=== PATIENT | female | born 1940 | race Caucasian/White ===

== ENCOUNTER → 2016-11-30 | Outpatient (CLI) | payer OTHER ==
[2013-07-25 04:25] VITALS: BP 119/58
--- NOTE | 2016-11-30 12:20 | MG ---
Examination: Unilateral left diagnostic mammogram. Clinical history: Personal history of right breast carcinoma with right mastectomy in 2007. Technique: Multiple digital images of the left breast were obtained. Computer aided detection analys is was performed in the used in the interpretation. Comparison: 05/13/2008. Findings: The left breast is heterogeneously dense, reducing the sensitivity of mammography. Benign-appearing calcifications are noted in the left breast. No suspicious mass, area of architectural distortion or suspicious cluster of microcalcifications is noted. Impression: 1. No mammographic evidence of malignancy. BI-RADS category 2-benign findings. Recommend routine annual screening mammogram. Diagnostic CAD was utilized and reviewed. * 0 (ZERO) - ASSESSMENT INCOMPLETE; ADDITIONAL IMAGING IS NEEDED. * 0C - ASSESSMENT INCOMPLETE, NEEDS ADDITIONAL IMAGING EVALUATION AND/OR PRIOR MAMMOGRAMS FOR COMPAR FRANKIE. * 1/1 (ONE) - NEGATIVE. * 2/II (TWO) - BENIGN FINDINGS. * 3/III (THREE) - PROBABLY BENIGN FINDING; SHORT INTERVAL FOLLOW-UP SUGGESTED. * 4/IV (FOUR) - SUSPICIOUS ABNORMALITY; BIOPSY SHOULD BE CONSIDERED. * 5/V - HIGHLY SUSPICIOUS OF MALIGNANCY; BIOPSY SHOULD BE PERFORMED. * 6/IV - KNOWN BIOPSY PROVEN MALIGNANCY-APPROPRIATE ACTION SHOULD BE TAKEN. A NEGATIVE X-RAY REPORT SHOULD NOT DELAY BIOPSY IF A DOMINANT OR CLINICALLY SUSPICIOUS MASS IS PRESENT; 4 TO 8 PERCENT OF CANCERS ARE NOT IDENTIFIED BY X-RAY. A NEGATIVE REPORT MAY REINFORCE THE CLINICAL IMPRESSION. ADENOSIS AND DENSE BREASTS MAY OBSCURE AN UNDERLYING NEOPLASM. Reported By:
== END ==
LOC: RAD 11:15
PROVIDERS: ATTEND Internal Medicine
DX: N64.59 Other signs and symptoms in breast (principal)
CPT/HCPCS: 77065

== ENCOUNTER 2016-12-06 07:19 | Emergency (ER) | payer OTHER ==
--- NOTE | 2016-12-06 07:24 | DR.GENAD ---
HPI - PCP Primary Care Physician: Stu - Complaint/Symptoms Chief Complaint Doctors Comments: Patient with chronic back pain with disc disease. Her MRI of 08/18/16 showed moderate multilevel DJD which is most prominent at L5-S1 Moderate to large asymmmetric disc bulge at L4-5 lateralizing to the left causing moderate dural sac effacement and moderate neural foraminal narrowing on the left.;Moderate disc bulges at L2-3 and L5-S1 Moderate osteoarthritic changes of the facets throughout causing diffuse moderate spinal stenosis with is most prominent at L4-5. She is being evaluated by neurosurgeor for treatment but the pain has been severe 06/14, aggravated by motion, chronic <RUEL WALTON - Last Filed: 12/06/16 07:20> PMH - PMH Past Surgical History: Yes <RUEL WALTON - Last Filed: 12/06/16 07:20> ROS - Review of Systems Eyes: No Symptoms Reported ENTM: No Symptoms Reported Respiratoy: No Symptoms Reported Cardiovascular: No Symptoms Reported Gastrointestinal/Abdominal: No Symptoms Reported Genitourinary: No Symptoms Reported Neurological: No Symptoms Reported Musculoskeletal: Back Pain, Joint Pain, Hip Integumentary: No Symptoms Reported Hematologic/Lymphatic: No Symptoms Reported Endocrine: No Symptoms Reported Psychiatric: No Symptoms Reported All Other Systems: Reviewed and Negative <RUEL WALTON - Last Filed: 12/06/16 07:20> PE - General Limitations: No Limitations General Appearance: Alert - Head Head Exam: Normal Inspection, Atraumatic - Eyes Eye exam: Normal Appearance, PERRL, EOMI - ENT ENT Exam: Normal Exam External Ear Exam: Normal External Inspection TM/Canal Exam: Bilateral Normal Nose Exam: Normal Nose Exam Mouth Exam: Normal Inspection Throat Exam: Normal Inspection - Neck Neck Exam: Normal Inspection - Chest Chest Inspection: Normal Inspection - Respiratory Respiratory Exam: Normal Lung Sounds Bilat Respiratory Exam: Bilateral Clear to Auscultation - Cardiovascular Cardiovascular Exam: Regular Rate, Normal Rhythm - Abdominal Exam Abdominal Exam: Normal Inspection Abdominal Tenderness: negative: RUQ, RLQ, LUQ, LLQ, Epigastrium, Suprapubic, Diffuse, Mild, Moderate, Severe, Other - Extremities Extremities Exam: negative: Full ROM (left lower extremity) - Back Back Exam: Tenderness (low back) - Neurologic Neurological Exam: Alert, Oriented X3, CN II-XII Intact - Psychiatric Psychiatric Exam: Normal Affect, Normal Mood - Skin Skin Exam: Warm, Dry, Intact <RUEL WALTON - Last Filed: 12/06/16 07:20> Course - Reevaluation 1st: Improved (WITH DEMORAL IM IN ED.) - Consultation Consultation Comments: DR. PEDRO, PCP CALLED AND WANT PATIENT ADMITTED FOR PAIN CONTROL. <JAVED ARAUJO - Last Filed: 12/06/16 09:01> ROR - Labs Reviewed Result Diagrams: 12/06/16 08:30 12/06/16 08:30 <JAVED ARAUJO - Last Filed: 12/06/16 09:01> <RUEL WALTON - Last Filed: 12/06/16 07:20> <JAVED ARAUJO - Last Filed: 12/06/16 09:01> - Diagnosis Discharge Problem: Lumbar degenerative disc disease, Arthritis, Intractable pain - Discharge Plan Disposition: ADMITTED INPATIENT Condition: Stable - Follow ups/Referrals - Instructions
[2016-12-06] MEDS ORDERED: DEMEROL INJ IM ONE (07:25)
[2016-12-06] MEDS ORDERED: DEMEROL INJ ONE (07:27)
[2016-12-06 07:29] VITALS: BMI 25.7
[2016-12-06] MEDS ORDERED: DEMEROL INJ IVP PRN (08:50)
[2016-12-06] MEDS ORDERED: ZOFRAN INJ 4 MG VIAL IVP PRN (08:50)
[2016-12-06 09:01] LABS: BASOPHILS # (AUTO) 0.1 X10^3/uL (0.0-0.1); BASOPHILS % (AUTO) 0.7 % (0.2-1.0); EOSINOPHILS # (AUTO) 0.2 x10^3/uL (0.0-0.2); EOSINOPHILS % (AUTO) 2.8 % (0.9-2.9); HEMOGLOBIN 12.5 g/dL (12.0-16.0); LYMPHOCYTES # (AUTO) 1.7 X10^3/uL (1.3-2.9); MEAN CORPUSCULAR HEMOGLOBIN 31.1 pg (27.0-34.0); MEAN CORPUSCULAR HGB CONC 34.7 g/dL (33.0-35.0); MEAN CORPUSCULAR VOLUME 89.6 fL (80.0-100.0); MEAN PLATELET VOLUME 8.2 fL (7.4-11.0); MONOCYTES # (AUTO) 0.8 x10^3/uL (0.3-0.8); MONOCYTES % (AUTO) 9.1 % (0.0-13.0); NEUTROPHILS # (AUTO) 5.5 x10^3/uL (2.2-4.8); NEUTROPHILS % (AUTO) 66.4 % (42.0-75.0); PLATELET COUNT 336 X10^3/uL (150.0-450.0); RED BLOOD COUNT 4.02 X10^6/uL (3.5-5.4); RED CELL DISTRIBUTION WIDTH 12.4 % (11.6-16.5); WHITE BLOOD COUNT 8.2 X10^3/uL (3.6-10.0)
[2016-12-06] MEDS: NS 1000 ML 1,000 ML IV SCH ×2 (09:03→16:49)
[2016-12-06 09:24] LABS: ALANINE AMINOTRANSFERASE 31 Units/L (12-78); ALBUMIN 3.8 g/dL (3.4-5.0); ALKALINE PHOSPHATASE 17 Units/L (46-116); ASPARTATE AMINO TRANSFERASE 23 Units/L (15-37); BLOOD UREA NITROGEN 21 mg/dL (7-18); CALCIUM 9.1 mg/dL (8.5-10.1); CHLORIDE 102 mmol/L (98-107); COR NA(FOR HYPERGLY) 142 mmol/L (136-145); CREATININE 1.49 mg/dL (0.55-1.02); GLUCOSE 140 mg/dL (65-99); SODIUM 141 mmol/L (136-145); TOTAL PROTEIN 7.8 g/dL (6.4-8.2); eGFR BLACK RACES 44 (>60); eGFR NON BLACK RACES 36 (>60)
[2016-12-06] MEDS: TORADOL 30 MG VIAL IVP PRN ×2 (11:01→23:07)
[2016-12-06 11:10] LABS: BILIRUBIN,URINE NEGATIVE (NEGATIVE); BLOOD/HEMOGLOBIN,URINE 1+ (NEGATIVE); GLUCOSE, URINE NEGATIVE (NEGATIVE); KETONES,URINE NEGATIVE (NEGATIVE); LEUKOCYTE ESTERASE ,URINE 1+ (NEGATIVE); NITRITES,URINE NEGATIVE (NEGATIVE); PROTEIN,URINE NEGATIVE (NEGATIVE); UROBILINOGEN,URINE NORMAL (NORMAL)
[2016-12-06 11:24] LABS: APPEARANCE,URINE SLIGHTLY HAZY (CLEAR); BACTERIA,URINE NEGATIVE /HPF (NEGATIVE); COLOR,URINE YELLOW (YELLOW); RBC,URINE 0-3 /HPF (NEGATIVE); RENAL EPITHELIAL CELLS,URINE FEW /HPF (NEGATIVE); SQUAMOUS EPITHELIAL CELL,UR RARE /HPF (NEGATIVE)
[2016-12-06] MEDS ORDERED: KLONOPIN TAB 0.5 MG PO SCH (16:00)
[2016-12-06] MEDS: PRED FORTE 1 % OP SCH ×4 (16:38→22:00)
[2016-12-06] MEDS: NEURONTIN CAP 300 MG PO SCH ×2 (16:38→21:03)
[2016-12-06] MEDS: PROTONIX TAB 40 MG PO SCH (16:48)
[2016-12-06] MEDS: TRICOR TAB 145 MG PO SCH (16:48)
[2016-12-06] MEDS: DIOVAN TAB 160 MG PO SCH (16:49)
[2016-12-06] MEDS: ASPIRIN EC 81 MG PO SCH (16:49)
[2016-12-06] MEDS: LOPRESSOR TAB 25 MG PO SCH (16:49)
[2016-12-06] MEDS ORDERED: K-RIDER 10 MEQ/NS 100 ML 10 MEQ/100 ML BAG IV PRN (16:52)
[2016-12-06] MEDS ORDERED: K-LYTE EFFERVESCENT PO PRN (16:52)
[2016-12-06] MEDS ORDERED: POTASSIUM CHLORIDE LIQ 20 MEQ UDC PO PRN (16:52)
[2016-12-06] MEDS ORDERED: K-DUR TAB 20 MEQ PO PRN (16:52)
[2016-12-06 16:57] LABS: BILIRUBIN,URINE NEGATIVE (NEGATIVE); BLOOD/HEMOGLOBIN,URINE NEGATIVE (NEGATIVE); GLUCOSE, URINE NEGATIVE (NEGATIVE); KETONES,URINE NEGATIVE (NEGATIVE); LEUKOCYTE ESTERASE ,URINE 1+ (NEGATIVE); NITRITES,URINE NEGATIVE (NEGATIVE); PROTEIN,URINE NEGATIVE (NEGATIVE); UROBILINOGEN,URINE NORMAL (NORMAL)
[2016-12-06 17:01] LABS: APPEARANCE,URINE HAZY (CLEAR); BACTERIA,URINE TRACE /HPF (NEGATIVE); COLOR,URINE YELLOW (YELLOW); RBC,URINE 0-2 /HPF (NEGATIVE); SQUAMOUS EPITHELIAL CELL,UR RARE /HPF (NEGATIVE)
[2016-12-06] MEDS ORDERED: [UNRECOGNIZED DRUG - OTHER] PO SCH (21:00)
[2016-12-06] MEDS ORDERED: [UNRECOGNIZED DRUG - OTHER] PO SCH (21:00)
[2016-12-06] MEDS: KLONOPIN TAB 0.5 MG PO SCH (21:03)
[2016-12-06] MEDS: PRAVACHOL PO SCH (21:03)
[2016-12-06] MEDS: PEPCID TAB 20 MG PO SCH (21:04)
[2016-12-07] MEDS: NS 1000 ML 1,000 ML IV SCH ×3 (01:13→21:12)
[2016-12-07 05:19] LABS: BASOPHILS % (AUTO) 0.4 % (0.2-1.0); EOSINOPHILS # (AUTO) 0.2 x10^3/uL (0.0-0.2); EOSINOPHILS % (AUTO) 3.1 % (0.9-2.9); HEMOGLOBIN 10.8 g/dL (12.0-16.0); LYMPHOCYTES # (AUTO) 2.8 X10^3/uL (1.3-2.9); LYMPHOCYTES % (AUTO) 38.3 % (21.0-51.0); MEAN CORPUSCULAR HEMOGLOBIN 30.9 pg (27.0-34.0); MEAN CORPUSCULAR HGB CONC 33.8 g/dL (33.0-35.0); MEAN CORPUSCULAR VOLUME 91.3 fL (80.0-100.0); MEAN PLATELET VOLUME 8.6 fL (7.4-11.0); MONOCYTES # (AUTO) 0.7 x10^3/uL (0.3-0.8); MONOCYTES % (AUTO) 9.9 % (0.0-13.0); NEUTROPHILS # (AUTO) 3.5 x10^3/uL (2.2-4.8); NEUTROPHILS % (AUTO) 48.3 % (42.0-75.0); PLATELET COUNT 279 X10^3/uL (150.0-450.0); RED BLOOD COUNT 3.51 X10^6/uL (3.5-5.4); RED CELL DISTRIBUTION WIDTH 12.3 % (11.6-16.5); WHITE BLOOD COUNT 7.3 X10^3/uL (3.6-10.0)
[2016-12-07 05:25] LABS: ALANINE AMINOTRANSFERASE 19 Units/L (12-78); ALBUMIN 2.8 g/dL (3.4-5.0); ALKALINE PHOSPHATASE 13 Units/L (46-116); ASPARTATE AMINO TRANSFERASE 19 Units/L (15-37); BLOOD UREA NITROGEN 22 mg/dL (7-18); CALCIUM 8.1 mg/dL (8.5-10.1); CARBON DIOXIDE 24.1 mmol/L (21-32); CHLORIDE 111 mmol/L (98-107); COR CA(FOR HYPOALB) 9.1 mg/dL (8.5-10.1); GLUCOSE 99 mg/dL (65-99); SODIUM 144 mmol/L (136-145); TOTAL PROTEIN 5.9 g/dL (6.4-8.2); eGFR BLACK RACES 51 (>60); eGFR NON BLACK RACES 43 (>60)
[2016-12-07] MEDS: TORADOL 30 MG VIAL IVP PRN (09:03)
[2016-12-07] MEDS: DIOVAN TAB 160 MG PO SCH (09:07)
[2016-12-07] MEDS: PROTONIX TAB 40 MG PO SCH (09:07)
[2016-12-07] MEDS: TRICOR TAB 145 MG PO SCH (09:07)
[2016-12-07] MEDS: LOPRESSOR TAB 25 MG PO SCH (09:08)
[2016-12-07] MEDS: NEURONTIN CAP 300 MG PO SCH ×3 (09:08→21:13)
[2016-12-07] MEDS: PRED FORTE 1 % OP SCH ×4 (09:08→21:14)
[2016-12-07] MEDS: ASPIRIN EC 81 MG PO SCH (09:08)
[2016-12-07] MEDS ORDERED: VALIUM PO PRN (09:26)
[2016-12-07] MEDS: TORADOL 30 MG VIAL IVP SCH ×3 (11:26→21:13)
[2016-12-07] MEDS ORDERED: VALIUM INJ IVP ONE (12:43)
--- NOTE | 2016-12-07 15:36 | MRI ---
HISTORY: Intractable low back pain Study: MRI lumbar spine without contrast Comparison: 08/18/2016 Technique: Multiplanar multi-sequence MRI of the lumbar spine was obtained. Sagittal T1, sagittal T 2, and stir weighted images, axial T1, and axial T2 images were obtained. Findings: The lumbar spine demonstrates normal alignment. No abnormal cord or marrow signal identified. The c onus of the cord terminates normally. The surrounding soft tissues are within normal limits. Verteb ral body heights are preserved. There is multilevel disc desiccation and spondylosis. T12 -- L1: Mild to moderate bilateral facet degenerative changes without significant stenosis. L1 -- L2: Moderate bilateral facet degenerative changes and hypertrophy without significant stenosis identified. L2 -- L3: There is mild to moderate spinal canal stenosis due to facet hypertrophic changes and a br oad-based disc bulge there is resultant moderate lateral recess encroachment and mild bilateral fora nieves narrowing. L3 -- L4: There is a central annular tear again noted. There is a broad-based disc bulge and moderat e to advanced facet hypertrophic changes resulting in moderate spinal stenosis, moderate lateral rec ess encroachment and mild bilateral foraminal narrowing. L4 -- L5: There is a large broad-based disc bulge at L4-L5 asymmetric to the left with posterior nataly ment hypertrophic changes resulting in moderate to severe spinal stenosis, lateral recess encroachme nt, and moderate left foraminal stenosis. L5 -- S1: There is a broad-based disc bulge and facet hypertrophic changes resulting in moderate lopez ateral foraminal narrowing. IMPRESSION: 1. Moderate to severe spinal stenosis at L4-5, and moderate spinal stenosis at L2-L3 and L3-L4 due t o degenerative disc disease and facet hypertrophic changes. 2. Moderate foraminal stenosis on the left at L4-5 and bilaterally at L5-S1. Reported By:
--- NOTE | 2016-12-07 16:09 | DR.H&P ---
H&P - History & Physical for Day of: H&P Date: 12/06/16 - Chief Complaint Chief Complaint: INTRACTABLE LOW BACK PAIN - Allergies Allergies/Adverse Reactions: Allergies Allergy/AdvReac Type Severity Reaction Status Date / Time Hydromorphone [From Dilaudid] Allergy Verified 12/06/16 07:30 - History of Present Illness History of Present Illness: THIS IS A 76 YEAR OLD FEMALE, WHO IS A PATIENT OF OURS. SHE PRESENTS TO THE EMERGENCY ROOM WITH COMPLAINTS OF SEVERE LOWER BACK PAIN. PATIENT HAS A HISTORY OF BACK PAIN WITH DEGENERATIVE JOINT DISEASE. PATIENT STATES SHE HAS BEEN EVALUATED BY A NEUROSURGEON FOR TREATMENT OF PAIN. PATIENT REPORTS PAIN IS SEVERE AND RATES IT A 10 ON A 1-TO-10 PAIN SCALE. SHE STATES HER BACK IS AGGRAVATED BY MOTION AND HAS WORSENED OVER THE LAST FEW DAYS. ON PALPATION, SHE IS NOTED WITH TENDERNESS TO LUMBAR REGION. PATIENT HAD AN MRI OF LUMBAR SPINE IN AUGUST OF 2016 THAT REPORTS: MODERATE MULTILEVEL DEGENERATIVE DISC DISEASE, MOST PROMINENT AT L5-S1 WITH NO ACUTE ABNORMALITY; MODERATE TO LARGE ASSYMETRIC DISC BULGE AT L4-5 LATERALIZING TO THE LEFT CAUSING MODERATE DURAL SAC EFFACEMENT AND MODERATE NEUROAL FORAMINAL NARROWING; MODERATE DISC BULGES AT L2-3 AND L5-S1; MODERATE OSTEOARTHRITIC CHANGES OF THE FACETS THROUGHOUT CAUSING DIFFUSE MODERATE SPINAL STENOSIS WHICH IS PROMINENT AT L4-5. WE WILL ADMIT PATIENT FOR PAIN CONTROL. WE WILL CONTINUE TO MONITOR AND PLAN FOR FOLLOW UP MRI OF LUMBAR SPINE IN AM. - Past Medical History Past Medical History: Anemia, Dyslipidemia, GERD, Hypertension Additional Medical History: Cataracts, Ear Infections, Constipation, Urinary Tract Infections, Osteoarthritis, Back Pain, DJD, Previous Blood Transfusion, Right Breast Cancer - Past Surgical History Surgical History: Cholecystectomy Additional Surgical History: Right Mastectomy - Family History Family Medical History: MS, Coronary Artery Disease, Hypertension Family History Comment: CVA - Social History Does patient currently use any type of tobacco product: No Have you used tobacco products in the last 12 months: No Type of Tobacco Use: None Does any household member use tobacco: No Alcohol Use: None Drug Use: Prescription Drugs - Medications Home Medications: Calcium Polycarbophil [Fiber Laxative] 2 tab PO DAILY 12/06/16 [History Confirmed 12/06/16] Clonazepam [Clonazepam] 0.5 mg PO HS 12/06/16 [History Confirmed 12/06/16] Fenofibrate [TRICOR 145 MG *] 145 mg PO DAILY 12/06/16 [History Confirmed ] Gabapentin [Gabapentin] 300 mg PO BID 12/06/16 [History Confirmed 12/06/16] Metoprolol Tartrate [LOPRESSOR 25 MG *] 25 mg PO DAILY 12/06/16 [History Confirmed 12/06/16] Pantoprazole Sodium 40 mg [PROTONIX 40 MG *] 40 mg PO DAILY 12/06/16 [History Confirmed 12/06/16] Pravastatin Sodium 20 mg PO HS 12/06/16 [History Confirmed 12/06/16] PrednisoLONE ACETATE (OPHTH) [PRED FORTE (OPHTH) SUSP 1 % *] 1 drop EACHEYE QID 12/06/16 [History Confirmed 12/06/16] Tramadol HCl 50 mg PO Q4-6H PRN 12/06/16 [History Confirmed 12/06/16] - Review of Systems Constitutional: No Symptoms Reported Eyes: No Symptoms Reported. denies: Pain, Vision Change, Conjunctivae Inflammation, Eyelid Inflammation, Redness ENT: No Symptoms Reported. denies: Ear Pain, Ear Discharge, Nose Pain, Nose Discharge, Nose Congestion, Mouth Pain, Mouth Swelling, Throat Pain, Throat Swelling Respiratory: No Symptoms Reported. denies: Cough, Shortness of Breath, Hemoptysis, SOB with Excertion, Pleuritic Pain, Sputum, Wheezing Cardiovascular: No Symptoms Reported. denies: Chest Pain, Palpitations, Orthopnea, Paroxysmal Noc. Dyspnea, Edema, Light Headedness Gastrointestinal: No Symptoms Reported. denies: Nausea, Vomiting, Abdominal Pain, Diarrhea, Constipation, Melena, Hematochezia Genitourinary: No Symptoms Reported. denies: Dysuria, Frequency, Incontinence, Hematuria, Retention Musculoskeletal: Back Pain Skin: No Symptoms Reported. denies: Rash, Lesions, Jaundice, Bruising, Wound, Ecchymosis Neurological: No Symptoms Reported. denies: Weakness, Numbness, Incoordination , Change in Speech, Confusion, Seizures - Physical Exam Vital Signs: Temperature 97.7 F Pulse Rate [Left Brachial] 78 Respiratory Rate 18 Blood Pressure [Left Arm] 147/65 O2 Sat by Pulse Oximetry 97 Oriented: Normal, Time, Person, Place Eyes: Normal. negative: Blurred Vision, Diplopia, Discharge, Pain, Redness, Photophobia Ear: Normal. negative: Swelling, Ecchymosis, Hemotypanum, Abrasion, Laceration Nose: Normal. negative: Injected, Discharge, Blood Throat: Normal. negative: Tonsillar Hypertrophy, Red, Exudate Respiratory: Clear Throughout Cardiovascular: Normal. negative: Murmur, Edema : Normal. negative: Dysuria, Hematuria, Frequency, Discharge, Bleeding, Auscultation: Bowel Sounds: Normal. negative: Bruit Palpation: Normal. negative: Spleen Enlarged, Liver Enlarged, Mass Pulsatile Tenderness: Normal. negative: Rebound, Guarding, Rigidity Skin: Normal. negative: Diaphoresis, Wound, Bruising, Ecchymosis Musculoskeletal: Back:Lumbar, Instability Psychiatric: Anxiety Mood Description: Anxious Affect: Normal Speech Pattern: Clear, Appropriate - Assessment/Plan (1) Intractable pain Status: Acute Plan: ADMIT PATIENT, START DEMEROL, TORADOL, MRI OF LUMBAR SPINE IN AM. (2) Lumbar degenerative disc disease Status: Chronic (3) Arthritis Status: Chronic (4) Hypertension Qualifiers: Hypertension type: essential hypertension Qualified Code(s): I10 - Essential (primary) hypertension Status: Chronic (5) Hyperlipemia Qualifiers: Hyperlipidemia type: mixed hyperlipidemia Qualified Code(s): E78.2 - Mixed hyperlipidemia Status: Chronic (6) GERD (gastroesophageal reflux disease) Qualifiers: Esophagitis presence: esophagitis presence not specified Qualified Code(s) : K21.9 - Gastro-esophageal reflux disease without esophagitis Status: Chronic (7) Hx of breast cancer Status: Chronic
--- NOTE | 2016-12-07 16:32 | PCM.PROG ---
Progress Note - Progress Note for Day of Date: 12/07/16 - Subjective Subjective: PATIENT IS SITTING ON SIDE OF BED WITH AT HER SIDE. PATIENT IS EATING BREAKFAST AND TOLERATING FAIR. SHE REPORTS PAIN IS MORE CONTROLLED WITH IV PAIN MEDICATIONS. PATIENT REPORTS SEVERE LEFT HIP PAIN ASSOCIATED WITH LUMBAR BACK PAIN. WE ARE GOING TO OBTAIN ANOTHER MRI OF LUMBAR SPINE TODAY DUE TO THE POSSIBLITY OF WORSENING SPINAL STENOSIS. WE DISCUSS THE POSSIBLITY OF SURGERY IF THIS IS TRUE, PATIENT VOICES UNDERSTANDING. CBC WNL EXCEPT: H/H 10.8/32.0. CMP WNL EXCEPT: CHL 111, BUN/CREAT 22/1.30, GFR 43, CALCIUM 8.1, TOT PROTEIN 5.9, ALBUMIN 2.8. WE WILL CONTINUE CURRENT TREATMENT AND FOLLOW UP IN AM WITH LABS. - Past Medical Family Social History Past Med/Fam/Surg Hx: No changes since H&P Allergies: Allergies Hydromorphone [From Dilaudid] Allergy (Verified 12/06/16 07:30) - Review of Systems ROS: No change since H&P - Vital Signs and I&O's Vital Signs: Temperature 97.7 F Pulse Rate [Left Brachial] 78 Respiratory Rate 18 Blood Pressure [Left Arm] 147/65 O2 Sat by Pulse Oximetry 97 Intake and Output: Intake & Output 12/05/16 12/06/16 12/07/16 12/08/16 11:59 11:59 11:59 11:59 Intake Total 1980 720 Output Total 203 Balance 1777 720 - Physical Exam Oriented: Normal, Time, Person, Place Eyes: Normal. negative: Blurred Vision, Diplopia, Discharge, Pain, Redness, Photophobia Ear: Normal. negative: Swelling, Ecchymosis, Hemotypanum, Abrasion, Laceration Nose: Normal. negative: Injected, Discharge, Blood Throat: Normal. negative: Tonsillar Hypertrophy, Red, Exudate Respiratory: Normal Cardiovascular: Normal. negative: Murmur, Edema : Normal. negative: Dysuria, Hematuria, Frequency, Discharge, Bleeding, Auscultation: Bowel Sounds: Normal. negative: Bruit Palpation: Normal. negative: Spleen Enlarged, Liver Enlarged, Mass Pulsatile Tenderness: Normal. negative: Rebound, Guarding, Rigidity Skin: Normal. negative: Diaphoresis, Wound, Bruising, Ecchymosis Musculoskeletal: Back:Lumbar, Instability Psychiatric: Normal Mood Description: Calm, Appropriate Affect: Normal Speech Pattern: Clear, Appropriate - Laboratory and Diagnostics Result Diagrams: 12/07/16 04:30 12/07/16 04:30 Labs: Laboratory WBC 7.3 X10^3/uL (3.6-10.0) 12/07/16 04:30 RBC 3.51 X10^6/uL (3.5-5.4) 12/07/16 04:30 Hgb 10.8 g/dL (12.0-16.0) L 12/07/16 04:30 Hct 32.0 % (36.0-47.0) L 12/07/16 04:30 MCV 91.3 fL (80.0-100.0) 12/07/16 04:30 MCH 30.9 pg (27.0-34.0) 12/07/16 04:30 MCHC 33.8 g/dL (33.0-35.0) 12/07/16 04:30 RDW 12.3 % (11.6-16.5) 12/07/16 04:30 Plt Count 279 X10^3/uL (150.0-450.0) 12/07/16 04:30 MPV 8.6 fL (7.4-11.0) 12/07/16 04:30 Neut % 48.3 % (42.0-75.0) 12/07/16 04:30 Lymph % 38.3 % (21.0-51.0) 12/07/16 04:30 Gregory % 9.9 % (0.0-13.0) 12/07/16 04:30 Eos % 3.1 % (0.9-2.9) H 12/07/16 04:30 Baso % 0.4 % (0.2-1.0) 12/07/16 04:30 Neut # 3.5 x10^3/uL (2.2-4.8) 12/07/16 04:30 Lymph # 2.8 X10^3/uL (1.3-2.9) 12/07/16 04:30 Gregory # 0.7 x10^3/uL (0.3-0.8) 12/07/16 04:30 Eos # 0.2 x10^3/uL (0.0-0.2) 12/07/16 04:30 Baso # 0.0 X10^3/uL (0.0-0.1) 12/07/16 04:30 Absolute Nucleated RBC 0.1 /100WBC 12/07/16 04:30 PTT 24.7 SECONDS (22.9-36.5) 12/07/16 10:05 PTT Comment - 12/07/16 10:05 Sodium 144 mmol/L (136-145) 12/07/16 04:30 Corrected Sodium TNP 12/07/16 04:30 Potassium 4.2 mmol/L (3.5-5.1) 12/07/16 04:30 Chloride 111 mmol/L (98-107) H 12/07/16 04:30 Carbon Dioxide 24.1 mmol/L (21-32) 12/07/16 04:30 BUN 22 mg/dL (7-18) H 12/07/16 04:30 Creatinine 1.30 mg/dL (0.55-1.02) H 12/07/16 04:30 Est GFR (MDRD) Af Amer 51 (>60) L 12/07/16 04:30 Est GFR (MDRD) Non-Af 43 (>60) L 12/07/16 04:30 Glucose 99 mg/dL (65-99) 12/07/16 04:30 Calcium 8.1 mg/dL (8.5-10.1) L 12/07/16 04:30 Corrected Calcium 9.1 mg/dL (8.5-10.1) 12/07/16 04:30 Total Bilirubin 0.20 mg/dL (0.2-1.0) 12/07/16 04:30 AST 19 Units/L (15-37) 12/07/16 04:30 ALT 19 Units/L (12-78) 12/07/16 04:30 Alkaline Phosphatase 13 Units/L (46-116) L 12/07/16 04:30 Total Protein 5.9 g/dL (6.4-8.2) L 12/07/16 04:30 Albumin 2.8 g/dL (3.4-5.0) L 12/07/16 04:30 Globulin 3.1 g/dL (2.5-4.5) 12/07/16 04:30 Albumin/Globulin Ratio 0.9 Ratio (1.1-2.1) L 12/07/16 04:30 Specimen Type Clean catch urine 12/06/16 16:40 Urine Color Yellow (YELLOW) 12/06/16 16:40 Urine Appearance Hazy (CLEAR) 12/06/16 16:40 Urine pH 5.0 (5.0 - 8.0) 12/06/16 16:40 Ur Specific Goodman 1.020 (1.000-1.030) 12/06/16 16:40 Urine Protein Negative (NEGATIVE) 12/06/16 16:40 Urine Glucose (UA) Negative (NEGATIVE) 12/06/16 16:40 Urine Ketones Negative (NEGATIVE) 12/06/16 16:40 Urine Occult Blood Negative (NEGATIVE) 12/06/16 16:40 Urine Nitrite Negative (NEGATIVE) 12/06/16 16:40 Urine Bilirubin Negative (NEGATIVE) 12/06/16 16:40 Urine Urobilinogen Normal (NORMAL) 12/06/16 16:40 Ur Leukocyte Esterase 1+ (NEGATIVE) 12/06/16 16:40 Urine RBC 0-2 /HPF (NEGATIVE) 12/06/16 16:40 Urine WBC 0-2 /HPF (NEGATIVE) 12/06/16 16:40 Ur Squamous Epith Cells Rare /HPF (NEGATIVE) 12/06/16 16:40 Ur Renal Epithelial Cell Few /HPF (NEGATIVE) 12/06/16 10:50 Urine Bacteria Trace /HPF (NEGATIVE) 12/06/16 16:40 Ur Culture Indicated? No/not indicated 12/06/16 16:40 - Plan (1) Intractable pain Status: Acute Plan: CONTINUE DEMEROL, TORADOL, MRI OF LUMBAR SPINE AND MRI OF LEFT HIP TODAY. (2) Left hip pain Status: Acute Plan: OBTAIN MRI OF LEFT HIP, CONTINUE DEMEROL, TORADOL, MONITOR. (3) Lumbar degenerative disc disease Status: Chronic (4) Arthritis Status: Chronic (5) Hypertension Status: Chronic Qualifiers: Hypertension type: essential hypertension Qualified Code(s): I10 - Essential (primary) hypertension (6) Hyperlipemia Status: Chronic Qualifiers: Hyperlipidemia type: mixed hyperlipidemia Qualified Code(s): E78.2 - Mixed hyperlipidemia (7) GERD (gastroesophageal reflux disease) Status: Chronic Qualifiers: Esophagitis presence: esophagitis presence not specified Qualified Code(s) : K21.9 - Gastro-esophageal reflux disease without esophagitis (8) Hx of breast cancer Status: Chronic
--- NOTE | 2016-12-07 16:44 | MRI ---
MR left hip without contrast Indication: Severe left hip pain for 3 months. Comparison: MR from the same day reviewed. Technique: Multiplanar multi sequence imaging through the pelvis and left hip without contrast. Findings: Review of intraperitoneal abdominal and pelvic soft tissue shows trace free fluid in the p jose without other acute unexpected abnormality. Colonic diverticulosis noted. Spine degenerative c hanges are noted, see separately dictated MR lumbar spine report. Mild bilateral SI joint DJD is see n. There is no evidence of fracture. Bone marrow signal is normal. Symphysis pubis DJD is noted. Bo ateral hip joint degenerative changes are noted. There is bilateral small hip joint effusions, relatively similar in size probably slightly larger on the left. Greater trochanteric bursitis is noted, very mild. Bilateral gluteus medius and minimus t endinosis seen. Bilateral minimal hamstring tendinosis noted. Iliopsoas tendon is intact. Degenerative fraying of the acetabular labrum is probably present but the labrum is relatively poorl y visualized without displaced labrum tear or paralabral cysts convincingly demonstrated. Impression: 1. Bilateral hip joint degenerative change , effusions, gluteus medius/minimus tendinosis, hamstring tendinosis and greater trochanteric bursitis. 2. No acute abnormality seen. Changes are relatively bilateral and symmetric. Please see separately dictated lumbar spine for possible lumbar source of pain. 3. Diverticulosis, symphysis pubis DJD and SI joint DJD also noted. Reported By:
[2016-12-07] MEDS: KLONOPIN TAB 0.5 MG PO SCH (21:13)
[2016-12-07] MEDS: ZANAFLEX PO SCH (21:13)
[2016-12-07] MEDS: PEPCID TAB 20 MG PO SCH (21:13)
[2016-12-07] MEDS: PRAVACHOL PO SCH (21:13)
[2016-12-08] MEDS: NS 1000 ML 1,000 ML IV SCH ×3 (00:48→17:41)
[2016-12-08] MEDS: TORADOL 30 MG VIAL IVP SCH ×2 (04:51→09:31)
[2016-12-08] MEDS: NEURONTIN CAP 300 MG PO SCH ×3 (05:06→21:12)
[2016-12-08 05:28] LABS: BASOPHILS % (AUTO) 0.3 % (0.2-1.0); EOSINOPHILS # (AUTO) 0.3 x10^3/uL (0.0-0.2); EOSINOPHILS % (AUTO) 4.3 % (0.9-2.9); HEMATOCRIT 29.8 % (36.0-47.0); HEMOGLOBIN 10.3 g/dL (12.0-16.0); LYMPHOCYTES # (AUTO) 2.5 X10^3/uL (1.3-2.9); LYMPHOCYTES % (AUTO) 40.9 % (21.0-51.0); MEAN CORPUSCULAR HEMOGLOBIN 31.4 pg (27.0-34.0); MEAN CORPUSCULAR HGB CONC 34.4 g/dL (33.0-35.0); MEAN CORPUSCULAR VOLUME 91.2 fL (80.0-100.0); MEAN PLATELET VOLUME 8.5 fL (7.4-11.0); MONOCYTES # (AUTO) 0.5 x10^3/uL (0.3-0.8); MONOCYTES % (AUTO) 8.2 % (0.0-13.0); NEUTROPHILS # (AUTO) 2.8 x10^3/uL (2.2-4.8); NEUTROPHILS % (AUTO) 46.3 % (42.0-75.0); PLATELET COUNT 267 X10^3/uL (150.0-450.0); RED BLOOD COUNT 3.27 X10^6/uL (3.5-5.4); RED CELL DISTRIBUTION WIDTH 12.2 % (11.6-16.5); WHITE BLOOD COUNT 6.1 X10^3/uL (3.6-10.0)
[2016-12-08 05:40] LABS: ALANINE AMINOTRANSFERASE 20 Units/L (12-78); ALBUMIN 2.7 g/dL (3.4-5.0); ALKALINE PHOSPHATASE 13 Units/L (46-116); ASPARTATE AMINO TRANSFERASE 20 Units/L (15-37); BLOOD UREA NITROGEN 22 mg/dL (7-18); CARBON DIOXIDE 24.6 mmol/L (21-32); CHLORIDE 113 mmol/L (98-107); CREATININE 1.31 mg/dL (0.55-1.02); GLUCOSE 100 mg/dL (65-99); SODIUM 146 mmol/L (136-145); TOTAL PROTEIN 5.7 g/dL (6.4-8.2); eGFR BLACK RACES 51 (>60); eGFR NON BLACK RACES 42 (>60)
[2016-12-08] MEDS: ASPIRIN EC 81 MG PO SCH (09:28)
[2016-12-08] MEDS: DIOVAN TAB 160 MG PO SCH (09:29)
[2016-12-08] MEDS: LOPRESSOR TAB 25 MG PO SCH (09:29)
[2016-12-08] MEDS: PROTONIX TAB 40 MG PO SCH (09:29)
[2016-12-08] MEDS: TRICOR TAB 145 MG PO SCH (09:29)
[2016-12-08] MEDS: PRED FORTE 1 % OP SCH ×4 (09:34→21:13)
[2016-12-08] MEDS ORDERED: TORADOL 30 MG VIAL IVP SCH (14:00)
[2016-12-08] MEDS ORDERED: ULTRAM PO PRN (17:52)
[2016-12-08] MEDS: PEPCID TAB 20 MG PO SCH (21:12)
[2016-12-08] MEDS: PRAVACHOL PO SCH (21:12)
[2016-12-08] MEDS: KLONOPIN TAB 0.5 MG PO SCH (21:12)
[2016-12-08] MEDS: ZANAFLEX PO SCH (21:13)
[2016-12-09 05:26] LABS: ALANINE AMINOTRANSFERASE 19 Units/L (12-78); ALBUMIN 2.7 g/dL (3.4-5.0); ALKALINE PHOSPHATASE 15 Units/L (46-116); ASPARTATE AMINO TRANSFERASE 16 Units/L (15-37); BLOOD UREA NITROGEN 17 mg/dL (7-18); CALCIUM 8.2 mg/dL (8.5-10.1); CARBON DIOXIDE 25.5 mmol/L (21-32); CHLORIDE 111 mmol/L (98-107); COR CA(FOR HYPOALB) 9.2 mg/dL (8.5-10.1); CREATININE 1.32 mg/dL (0.55-1.02); GLUCOSE 107 mg/dL (65-99); SODIUM 144 mmol/L (136-145); TOTAL PROTEIN 5.6 g/dL (6.4-8.2); eGFR BLACK RACES 51 (>60); eGFR NON BLACK RACES 42 (>60)
[2016-12-09 05:32] LABS: BASOPHILS % (AUTO) 0.4 % (0.2-1.0); EOSINOPHILS # (AUTO) 0.3 x10^3/uL (0.0-0.2); EOSINOPHILS % (AUTO) 4.4 % (0.9-2.9); HEMATOCRIT 28.3 % (36.0-47.0); HEMOGLOBIN 9.8 g/dL (12.0-16.0); LYMPHOCYTES # (AUTO) 2.3 X10^3/uL (1.3-2.9); LYMPHOCYTES % (AUTO) 34.3 % (21.0-51.0); MEAN CORPUSCULAR HEMOGLOBIN 31.3 pg (27.0-34.0); MEAN CORPUSCULAR HGB CONC 34.6 g/dL (33.0-35.0); MEAN CORPUSCULAR VOLUME 90.3 fL (80.0-100.0); MEAN PLATELET VOLUME 8.6 fL (7.4-11.0); MONOCYTES # (AUTO) 0.6 x10^3/uL (0.3-0.8); MONOCYTES % (AUTO) 8.3 % (0.0-13.0); NEUTROPHILS # (AUTO) 3.5 x10^3/uL (2.2-4.8); NEUTROPHILS % (AUTO) 52.6 % (42.0-75.0); PLATELET COUNT 264 X10^3/uL (150.0-450.0); RED BLOOD COUNT 3.14 X10^6/uL (3.5-5.4); RED CELL DISTRIBUTION WIDTH 12.4 % (11.6-16.5); WHITE BLOOD COUNT 6.7 X10^3/uL (3.6-10.0)
[2016-12-09] MEDS: NEURONTIN CAP 300 MG PO SCH ×3 (05:57→21:20)
[2016-12-09] MEDS ORDERED: DYLOJECT INJ IVP PRN (09:18)
[2016-12-09] MEDS: PRED FORTE 1 % OP SCH ×4 (09:26→21:18)
[2016-12-09] MEDS: PROTONIX TAB 40 MG PO SCH (09:26)
[2016-12-09] MEDS: LOPRESSOR TAB 25 MG PO SCH (09:26)
[2016-12-09] MEDS: DIOVAN TAB 160 MG PO SCH (09:26)
[2016-12-09] MEDS: TRICOR TAB 145 MG PO SCH (09:26)
[2016-12-09] MEDS: ASPIRIN EC 81 MG PO SCH (09:26)
--- NOTE | 2016-12-09 20:29 | PCM.PROG ---
Progress Note - Progress Note for Day of Date: 12/08/16 - Subjective Subjective: PATIENT RESTS IN BED WITH AT BEDSIDE. PATIENT REPORTS PAIN IS SEVERE THIS MORNING. PATIENT CONTINUES ON IV TORADOL ATC FOR PAIN CONTROL. PATIENT REPORTS SEVERE LEFT HIP PAIN ASSOCIATED WITH LUMBAR BACK PAIN. WE OBTAINED ANOTHER MRI OF LUMBAR SPINE AND IT REPORTS: MODERATE TO SEVERE SPINAL STENOSIS AT L4-5 AND MODERATE SPINAL STENOSIS AT L2-3 AND L3-4 DUE TO DEGENERATEIVE DISC DISEASE AND FACET HYPERTROPHIC CHANGES; MODERATE FORAMINAL STENOSIS ON THE LEFT AT L4-5 AND BILATERALLY AT L5-S1. LEFT HIP MRI REPORTS: BILATERAL HIP JOINT DEGENERATIVE CHANGE, EFFUSION, GLUTEUS MEDIUS/MINIMUS TENIOSIS, HAMSTRING TENDINOSIS AND GREATER TROCHANTERIC BURSITIS; NO ACUTE ABNORMALITY SEEN. WE DISCUSS REPORTS WITH PATIENT AND . THEY VOICE UNDERSTANDING. WE DISCUSS FURTHER PLANS FOR SURGERY WHEN POSSIBLE, SHE VOICES UNDERSTANDING. CBC WNL EXCEPT: H/H 10.3/29.8. CMP WNL EXCEPT: SODIUM 146, CHL 113, BUN/CREAT 22/1.31, GFR 42, GLUCOSE 100, CALCIUM 8.0, TOT PROTEIN 5.7, ALBUMIN 2.7. WE WILL CONTINUE CURRENT TREATMENT AND FOLLOW UP IN AM WITH LABS. - Past Medical Family Social History Past Med/Fam/Surg Hx: No changes since H&P Allergies: Allergies Hydromorphone [From Dilaudid] Allergy (Verified 12/06/16 07:30) - Review of Systems ROS: No change since H&P - Vital Signs and I&O's Vital Signs: Temperature 97.4 F Pulse Rate [Left Brachial] 84 Respiratory Rate 20 Blood Pressure [Left Arm] 181/79 O2 Sat by Pulse Oximetry 95 Intake and Output: Intake & Output 12/07/16 12/08/16 12/09/16 12/10/16 11:59 11:59 11:59 11:59 Intake Total 1980 3445 1760 1250 Output Total 203 Balance 1777 3445 1760 1250 - Physical Exam Oriented: Normal, Time, Person, Place Eyes: Normal. negative: Blurred Vision, Diplopia, Discharge, Pain, Redness, Photophobia Ear: Normal. negative: Swelling, Ecchymosis, Hemotypanum, Abrasion, Laceration Nose: Normal. negative: Injected, Discharge, Blood Throat: Normal. negative: Tonsillar Hypertrophy, Red, Exudate Respiratory: Normal Cardiovascular: Normal. negative: Murmur, Edema : Normal. negative: Dysuria, Hematuria, Frequency, Discharge, Bleeding, Auscultation: Bowel Sounds: Normal. negative: Bruit Palpation: Normal. negative: Spleen Enlarged, Liver Enlarged, Mass Pulsatile Tenderness: Normal. negative: Rebound, Guarding, Rigidity Skin: Normal. negative: Diaphoresis, Wound, Bruising, Ecchymosis Musculoskeletal: Back:Lumbar, Instability Psychiatric: Normal Mood Description: Calm, Appropriate Affect: Normal Speech Pattern: Clear, Appropriate - Laboratory and Diagnostics Result Diagrams: 12/09/16 04:30 12/09/16 04:30 Labs: Laboratory WBC 6.7 X10^3/uL (3.6-10.0) 12/09/16 04:30 RBC 3.14 X10^6/uL (3.5-5.4) L 12/09/16 04:30 Hgb 9.8 g/dL (12.0-16.0) L 12/09/16 04:30 Hct 28.3 % (36.0-47.0) L 12/09/16 04:30 MCV 90.3 fL (80.0-100.0) 12/09/16 04:30 MCH 31.3 pg (27.0-34.0) 12/09/16 04:30 MCHC 34.6 g/dL (33.0-35.0) 12/09/16 04:30 RDW 12.4 % (11.6-16.5) 12/09/16 04:30 Plt Count 264 X10^3/uL (150.0-450.0) 12/09/16 04:30 MPV 8.6 fL (7.4-11.0) 12/09/16 04:30 Neut % 52.6 % (42.0-75.0) 12/09/16 04:30 Lymph % 34.3 % (21.0-51.0) 12/09/16 04:30 [place] % 8.3 % (0.0-13.0) 12/09/16 04:30 Eos % 4.4 % (0.9-2.9) H 12/09/16 04:30 Baso % 0.4 % (0.2-1.0) 12/09/16 04:30 Neut # 3.5 x10^3/uL (2.2-4.8) 12/09/16 04:30 Lymph # 2.3 X10^3/uL (1.3-2.9) 12/09/16 04:30 [place] # 0.6 x10^3/uL (0.3-0.8) 12/09/16 04:30 Eos # 0.3 x10^3/uL (0.0-0.2) H 12/09/16 04:30 Baso # 0.0 X10^3/uL (0.0-0.1) 12/09/16 04:30 Absolute Nucleated RBC 0.1 /100WBC 12/09/16 04:30 PTT 24.7 SECONDS (22.9-36.5) 12/07/16 10:05 PTT Comment - 12/07/16 10:05 Sodium 144 mmol/L (136-145) 12/09/16 04:30 Corrected Sodium TNP 12/09/16 04:30 Potassium 3.5 mmol/L (3.5-5.1) 12/09/16 04:30 Chloride 111 mmol/L (98-107) H 12/09/16 04:30 Carbon Dioxide 25.5 mmol/L (21-32) 12/09/16 04:30 BUN 17 mg/dL (7-18) 12/09/16 04:30 Creatinine 1.32 mg/dL (0.55-1.02) H 12/09/16 04:30 Est GFR (MDRD) Af Amer 51 (>60) L 12/09/16 04:30 Est GFR (MDRD) Non-Af 42 (>60) L 12/09/16 04:30 Glucose 107 mg/dL (65-99) H 12/09/16 04:30 Calcium 8.2 mg/dL (8.5-10.1) L 12/09/16 04:30 Corrected Calcium 9.2 mg/dL (8.5-10.1) 12/09/16 04:30 Total Bilirubin 0.10 mg/dL (0.2-1.0) L 12/09/16 04:30 AST 16 Units/L (15-37) 12/09/16 04:30 ALT 19 Units/L (12-78) 12/09/16 04:30 Alkaline Phosphatase 15 Units/L (46-116) L 12/09/16 04:30 Total Protein 5.6 g/dL (6.4-8.2) L 12/09/16 04:30 Albumin 2.7 g/dL (3.4-5.0) L 12/09/16 04:30 Globulin 2.9 g/dL (2.5-4.5) 12/09/16 04:30 Albumin/Globulin Ratio 0.9 Ratio (1.1-2.1) L 12/09/16 04:30 Specimen Type Clean catch urine 12/06/16 16:40 Urine Color Yellow (YELLOW) 12/06/16 16:40 Urine Appearance Hazy (CLEAR) 12/06/16 16:40 Urine pH 5.0 (5.0 - 8.0) 12/06/16 16:40 Ur Specific [place] 1.020 (1.000-1.030) 12/06/16 16:40 Urine Protein Negative (NEGATIVE) 12/06/16 16:40 Urine Glucose (UA) Negative (NEGATIVE) 12/06/16 16:40 Urine Ketones Negative (NEGATIVE) 12/06/16 16:40 Urine Occult Blood Negative (NEGATIVE) 12/06/16 16:40 Urine Nitrite Negative (NEGATIVE) 12/06/16 16:40 Urine Bilirubin Negative (NEGATIVE) 12/06/16 16:40 Urine Urobilinogen Normal (NORMAL) 12/06/16 16:40 Ur Leukocyte Esterase 1+ (NEGATIVE) 12/06/16 16:40 Urine RBC 0-2 /HPF (NEGATIVE) 12/06/16 16:40 Urine WBC 0-2 /HPF (NEGATIVE) 12/06/16 16:40 Ur Squamous Epith Cells Rare /HPF (NEGATIVE) 12/06/16 16:40 Ur Renal Epithelial Cell Few /HPF (NEGATIVE) 12/06/16 10:50 Urine Bacteria Trace /HPF (NEGATIVE) 12/06/16 16:40 Ur Culture Indicated? No/not indicated 12/06/16 16:40 - Plan (1) Intractable pain Status: Acute Plan: CONTINUE DEMEROL, TORADOL, MONITOR. (2) Left hip pain Status: Acute Plan: CONTINUE DEMEROL, TORADOL, MONITOR. (3) Lumbar degenerative disc disease Status: Chronic (4) Arthritis Status: Chronic (5) Hypertension Status: Chronic Qualifiers: Hypertension type: essential hypertension Qualified Code(s): I10 - Essential (primary) hypertension (6) Hyperlipemia Status: Chronic Qualifiers: Hyperlipidemia type: mixed hyperlipidemia Qualified Code(s): E78.2 - Mixed hyperlipidemia (7) GERD (gastroesophageal reflux disease) Status: Chronic Qualifiers: Esophagitis presence: esophagitis presence not specified Qualified Code(s) : K21.9 - Gastro-esophageal reflux disease without esophagitis (8) Hx of breast cancer Status: Chronic
[2016-12-09] MEDS: PRAVACHOL PO SCH (21:17)
[2016-12-09] MEDS: ZANAFLEX PO SCH (21:17)
[2016-12-09] MEDS: PEPCID TAB 20 MG PO SCH (21:17)
[2016-12-09] MEDS: KLONOPIN TAB 0.5 MG PO SCH (21:18)
[2016-12-09] MEDS: NS 1000 ML 1,000 ML IV SCH (21:21)
[2016-12-10] MEDS: NEURONTIN CAP 300 MG PO SCH ×3 (05:37→21:18)
[2016-12-10] MEDS: NS 1000 ML 1,000 ML IV SCH ×2 (05:38→16:19)
[2016-12-10 06:19] LABS: BASOPHILS % (AUTO) 0.5 % (0.2-1.0); EOSINOPHILS # (AUTO) 0.3 x10^3/uL (0.0-0.2); EOSINOPHILS % (AUTO) 4.2 % (0.9-2.9); HEMOGLOBIN 9.9 g/dL (12.0-16.0); LYMPHOCYTES # (AUTO) 2.5 X10^3/uL (1.3-2.9); LYMPHOCYTES % (AUTO) 36.6 % (21.0-51.0); MEAN CORPUSCULAR HEMOGLOBIN 31.2 pg (27.0-34.0); MEAN CORPUSCULAR HGB CONC 34.3 g/dL (33.0-35.0); MEAN CORPUSCULAR VOLUME 91.1 fL (80.0-100.0); MONOCYTES # (AUTO) 0.6 x10^3/uL (0.3-0.8); MONOCYTES % (AUTO) 8.7 % (0.0-13.0); NEUTROPHILS # (AUTO) 3.5 x10^3/uL (2.2-4.8); PLATELET COUNT 270 X10^3/uL (150.0-450.0); RED BLOOD COUNT 3.19 X10^6/uL (3.5-5.4); RED CELL DISTRIBUTION WIDTH 12.5 % (11.6-16.5); WHITE BLOOD COUNT 6.9 X10^3/uL (3.6-10.0)
[2016-12-10 06:29] LABS: ALANINE AMINOTRANSFERASE 18 Units/L (12-78); ALKALINE PHOSPHATASE 15 Units/L (46-116); ASPARTATE AMINO TRANSFERASE 18 Units/L (15-37); BLOOD UREA NITROGEN 24 mg/dL (7-18); CALCIUM 8.8 mg/dL (8.5-10.1); CARBON DIOXIDE 25.7 mmol/L (21-32); CHLORIDE 110 mmol/L (98-107); COR CA(FOR HYPOALB) 9.6 mg/dL (8.5-10.1); CREATININE 1.36 mg/dL (0.55-1.02); GLUCOSE 108 mg/dL (65-99); SODIUM 146 mmol/L (136-145); TOTAL PROTEIN 5.7 g/dL (6.4-8.2); eGFR BLACK RACES 49 (>60); eGFR NON BLACK RACES 40 (>60)
[2016-12-10] MEDS: PROTONIX TAB 40 MG PO SCH (09:00)
[2016-12-10] MEDS: LOPRESSOR TAB 25 MG PO SCH (09:00)
[2016-12-10] MEDS: TRICOR TAB 145 MG PO SCH (09:00)
[2016-12-10] MEDS: ASPIRIN EC 81 MG PO SCH (09:00)
[2016-12-10] MEDS: PRED FORTE 1 % OP SCH ×4 (09:01→21:19)
[2016-12-10] MEDS: DIOVAN TAB 160 MG PO SCH (09:01)
--- NOTE | 2016-12-10 17:39 | PCM.PROG ---
Progress Note - Progress Note for Day of Date: 12/09/16 - Subjective Subjective: PATIENT IS EMOTIONAL THIS MORNING DUE TO SEVERE PAIN THIS MORNING. PATIENT CONTINUES WITH SEVERE LEFT HIP PAIN ASSOCIATED WITH LUMBAR BACK PAIN. PATIENT HAS BEEN ON TORADOL FOR PAIN MANAGEMENT. CBC WNL EXCEPT: H/H 9.8/28.3. CMP WNL EXCEPT: CHL 111, CREAT 1.32, GFR 42, GLUCOSE 107, CALCIUM 8.2, TOT PROTEIN 5.6, ALBUMIN 2.7. WE WILL DISCONTINUE TORADOL, START IV DICLOFENAC, CONTINUE CURRENT TREATMENT, AND FOLLOW UP IN AM WITH LABS. - Past Medical Family Social History Past Med/Fam/Surg Hx: No changes since H&P Allergies: Allergies Hydromorphone [From Dilaudid] Allergy (Verified 12/06/16 07:30) - Review of Systems ROS: No change since H&P - Vital Signs and I&O's Vital Signs: Temperature 97.8 F Pulse Rate [Left Brachial] 87 Respiratory Rate 18 Blood Pressure [Left Arm] 127/59 O2 Sat by Pulse Oximetry 96 Intake and Output: Intake & Output 12/08/16 12/09/16 12/10/16 12/11/16 11:59 11:59 11:59 11:59 Intake Total 3445 1760 2932 1460 Balance 3445 1760 2932 1460 - Physical Exam Oriented: Normal, Time, Person, Place Eyes: Normal. negative: Blurred Vision, Diplopia, Discharge, Pain, Redness, Photophobia Ear: Normal. negative: Swelling, Ecchymosis, Hemotypanum, Abrasion, Laceration Nose: Normal. negative: Injected, Discharge, Blood Throat: Normal. negative: Tonsillar Hypertrophy, Red, Exudate Respiratory: Normal Cardiovascular: Normal. negative: Murmur, Edema : Normal. negative: Dysuria, Hematuria, Frequency, Discharge, Bleeding, Auscultation: Bowel Sounds: Normal. negative: Bruit Palpation: Normal. negative: Spleen Enlarged, Liver Enlarged, Mass Pulsatile Tenderness: Normal. negative: Rebound, Guarding, Rigidity Skin: Normal. negative: Diaphoresis, Wound, Bruising, Ecchymosis Musculoskeletal: Back:Lumbar, Instability Psychiatric: Normal Mood Description: Calm, Appropriate Affect: Normal Speech Pattern: Clear, Appropriate - Laboratory and Diagnostics Result Diagrams: 12/10/16 03:45 12/10/16 03:45 Labs: Laboratory WBC 6.9 X10^3/uL (3.6-10.0) 12/10/16 03:45 RBC 3.19 X10^6/uL (3.5-5.4) L 12/10/16 03:45 Hgb 9.9 g/dL (12.0-16.0) L 12/10/16 03:45 Hct 29.0 % (36.0-47.0) L 12/10/16 03:45 MCV 91.1 fL (80.0-100.0) 12/10/16 03:45 MCH 31.2 pg (27.0-34.0) 12/10/16 03:45 MCHC 34.3 g/dL (33.0-35.0) 12/10/16 03:45 RDW 12.5 % (11.6-16.5) 12/10/16 03:45 Plt Count 270 X10^3/uL (150.0-450.0) 12/10/16 03:45 MPV 9.0 fL (7.4-11.0) 12/10/16 03:45 Neut % 50.0 % (42.0-75.0) 12/10/16 03:45 Lymph % 36.6 % (21.0-51.0) 12/10/16 03:45 [place] % 8.7 % (0.0-13.0) 12/10/16 03:45 Eos % 4.2 % (0.9-2.9) H 12/10/16 03:45 Baso % 0.5 % (0.2-1.0) 12/10/16 03:45 Neut # 3.5 x10^3/uL (2.2-4.8) 12/10/16 03:45 Lymph # 2.5 X10^3/uL (1.3-2.9) 12/10/16 03:45 [place] # 0.6 x10^3/uL (0.3-0.8) 12/10/16 03:45 Eos # 0.3 x10^3/uL (0.0-0.2) H 12/10/16 03:45 Baso # 0.0 X10^3/uL (0.0-0.1) 12/10/16 03:45 Absolute Nucleated RBC 0.3 /100WBC 12/10/16 03:45 PTT 24.7 SECONDS (22.9-36.5) 12/07/16 10:05 PTT Comment - 12/07/16 10:05 Sodium 146 mmol/L (136-145) H 12/10/16 03:45 Corrected Sodium TNP 12/10/16 03:45 Potassium 3.7 mmol/L (3.5-5.1) 12/10/16 03:45 Chloride 110 mmol/L (98-107) H 12/10/16 03:45 Carbon Dioxide 25.7 mmol/L (21-32) 12/10/16 03:45 BUN 24 mg/dL (7-18) H 12/10/16 03:45 Creatinine 1.36 mg/dL (0.55-1.02) H 12/10/16 03:45 Est GFR (MDRD) Af Amer 49 (>60) L 12/10/16 03:45 Est GFR (MDRD) Non-Af 40 (>60) L 12/10/16 03:45 Glucose 108 mg/dL (65-99) H 12/10/16 03:45 Calcium 8.8 mg/dL (8.5-10.1) 12/10/16 03:45 Corrected Calcium 9.6 mg/dL (8.5-10.1) 12/10/16 03:45 Total Bilirubin 0.20 mg/dL (0.2-1.0) 12/10/16 03:45 AST 18 Units/L (15-37) 12/10/16 03:45 ALT 18 Units/L (12-78) 12/10/16 03:45 Alkaline Phosphatase 15 Units/L (46-116) L 12/10/16 03:45 Total Protein 5.7 g/dL (6.4-8.2) L 12/10/16 03:45 Albumin 3.0 g/dL (3.4-5.0) L 12/10/16 03:45 Globulin 2.7 g/dL (2.5-4.5) 12/10/16 03:45 Albumin/Globulin Ratio 1.1 Ratio (1.1-2.1) 12/10/16 03:45 Specimen Type Clean catch urine 12/06/16 16:40 Urine Color Yellow (YELLOW) 12/06/16 16:40 Urine Appearance Hazy (CLEAR) 12/06/16 16:40 Urine pH 5.0 (5.0 - 8.0) 12/06/16 16:40 Ur Specific [place] 1.020 (1.000-1.030) 12/06/16 16:40 Urine Protein Negative (NEGATIVE) 12/06/16 16:40 Urine Glucose (UA) Negative (NEGATIVE) 12/06/16 16:40 Urine Ketones Negative (NEGATIVE) 12/06/16 16:40 Urine Occult Blood Negative (NEGATIVE) 12/06/16 16:40 Urine Nitrite Negative (NEGATIVE) 12/06/16 16:40 Urine Bilirubin Negative (NEGATIVE) 12/06/16 16:40 Urine Urobilinogen Normal (NORMAL) 12/06/16 16:40 Ur Leukocyte Esterase 1+ (NEGATIVE) 12/06/16 16:40 Urine RBC 0-2 /HPF (NEGATIVE) 12/06/16 16:40 Urine WBC 0-2 /HPF (NEGATIVE) 12/06/16 16:40 Ur Squamous Epith Cells Rare /HPF (NEGATIVE) 12/06/16 16:40 Ur Renal Epithelial Cell Few /HPF (NEGATIVE) 12/06/16 10:50 Urine Bacteria Trace /HPF (NEGATIVE) 12/06/16 16:40 Ur Culture Indicated? No/not indicated 12/06/16 16:40 - Plan (1) Intractable pain Status: Acute Plan: DISCONTINUE TORADOL, START DICLOFENAC ATC, MONITOR. (2) Left hip pain Status: Acute Plan: ABOVE. (3) Lumbar degenerative disc disease Status: Chronic (4) Arthritis Status: Chronic (5) Hypertension Status: Chronic Qualifiers: Hypertension type: essential hypertension Qualified Code(s): I10 - Essential (primary) hypertension (6) Hyperlipemia Status: Chronic Qualifiers: Hyperlipidemia type: mixed hyperlipidemia Qualified Code(s): E78.2 - Mixed hyperlipidemia (7) GERD (gastroesophageal reflux disease) Status: Chronic Qualifiers: Esophagitis presence: esophagitis presence not specified Qualified Code(s) : K21.9 - Gastro-esophageal reflux disease without esophagitis (8) Hx of breast cancer Status: Chronic
--- NOTE | 2016-12-10 17:45 | PCM.PROG ---
Progress Note - Progress Note for Day of Date: 12/10/16 - Subjective Subjective: PHYSICAL THERAPY IS WORKING WITH PATIENT ON STRENGTHENING EXERCISES UPON ROUNDS THIS MORNING. PATIENT IN BETTER SPIRITS. PATIENT REPORTS PAIN CONTINUES BUT IS MORE CONTROLLED WITH IV PAIN MEDICATION. ON PALPATION, TENDERNESS CONTINUES TO LUMBAR REGION OF BACK. CBC WNL EXCEPT: H/H 9.8/28.3. CMP WNL EXCEPT: SODIUM 146, CHL 110, BUN/CREAT 24/1.36, GFR 40, GLUCOSE 108, TOT PROTEIN 5.7, ALBUMIN 3.0. WE WILL CONTINUE IV DICLOFENAC, CONTINUE PHYSICAL THERAPY, AND FOLLOW UP IN AM WITH LABS. - Past Medical Family Social History Past Med/Fam/Surg Hx: No changes since H&P Allergies: Allergies Hydromorphone [From Dilaudid] Allergy (Verified 12/06/16 07:30) - Review of Systems ROS: No change since H&P - Vital Signs and I&O's Vital Signs: Temperature 97.8 F Pulse Rate [Left Brachial] 87 Respiratory Rate 18 Blood Pressure [Left Arm] 127/59 O2 Sat by Pulse Oximetry 96 Intake and Output: Intake & Output 12/08/16 12/09/16 12/10/16 12/11/16 11:59 11:59 11:59 11:59 Intake Total 3445 1760 2932 1460 Balance 3445 1760 2932 1460 - Physical Exam Oriented: Normal, Time, Person, Place Eyes: Normal. negative: Blurred Vision, Diplopia, Discharge, Pain, Redness, Photophobia Ear: Normal. negative: Swelling, Ecchymosis, Hemotypanum, Abrasion, Laceration Nose: Normal. negative: Injected, Discharge, Blood Throat: Normal. negative: Tonsillar Hypertrophy, Red, Exudate Respiratory: Normal Cardiovascular: Normal. negative: Murmur, Edema : Normal. negative: Dysuria, Hematuria, Frequency, Discharge, Bleeding, Auscultation: Bowel Sounds: Normal. negative: Bruit Palpation: Normal. negative: Spleen Enlarged, Liver Enlarged, Mass Pulsatile Tenderness: Normal. negative: Rebound, Guarding, Rigidity Skin: Normal. negative: Diaphoresis, Wound, Bruising, Ecchymosis Musculoskeletal: Back:Lumbar, Instability Psychiatric: Normal Mood Description: Calm, Appropriate Affect: Normal Speech Pattern: Clear, Appropriate - Laboratory and Diagnostics Result Diagrams: 12/10/16 03:45 12/10/16 03:45 Labs: Laboratory WBC 6.9 X10^3/uL (3.6-10.0) 12/10/16 03:45 RBC 3.19 X10^6/uL (3.5-5.4) L 12/10/16 03:45 Hgb 9.9 g/dL (12.0-16.0) L 12/10/16 03:45 Hct 29.0 % (36.0-47.0) L 12/10/16 03:45 MCV 91.1 fL (80.0-100.0) 12/10/16 03:45 MCH 31.2 pg (27.0-34.0) 12/10/16 03:45 MCHC 34.3 g/dL (33.0-35.0) 12/10/16 03:45 RDW 12.5 % (11.6-16.5) 12/10/16 03:45 Plt Count 270 X10^3/uL (150.0-450.0) 12/10/16 03:45 MPV 9.0 fL (7.4-11.0) 12/10/16 03:45 Neut % 50.0 % (42.0-75.0) 12/10/16 03:45 Lymph % 36.6 % (21.0-51.0) 12/10/16 03:45 [place] % 8.7 % (0.0-13.0) 12/10/16 03:45 Eos % 4.2 % (0.9-2.9) H 12/10/16 03:45 Baso % 0.5 % (0.2-1.0) 12/10/16 03:45 Neut # 3.5 x10^3/uL (2.2-4.8) 12/10/16 03:45 Lymph # 2.5 X10^3/uL (1.3-2.9) 12/10/16 03:45 [place] # 0.6 x10^3/uL (0.3-0.8) 12/10/16 03:45 Eos # 0.3 x10^3/uL (0.0-0.2) H 12/10/16 03:45 Baso # 0.0 X10^3/uL (0.0-0.1) 12/10/16 03:45 Absolute Nucleated RBC 0.3 /100WBC 12/10/16 03:45 PTT 24.7 SECONDS (22.9-36.5) 12/07/16 10:05 PTT Comment - 12/07/16 10:05 Sodium 146 mmol/L (136-145) H 12/10/16 03:45 Corrected Sodium TNP 12/10/16 03:45 Potassium 3.7 mmol/L (3.5-5.1) 12/10/16 03:45 Chloride 110 mmol/L (98-107) H 12/10/16 03:45 Carbon Dioxide 25.7 mmol/L (21-32) 12/10/16 03:45 BUN 24 mg/dL (7-18) H 12/10/16 03:45 Creatinine 1.36 mg/dL (0.55-1.02) H 12/10/16 03:45 Est GFR (MDRD) Af Amer 49 (>60) L 12/10/16 03:45 Est GFR (MDRD) Non-Af 40 (>60) L 12/10/16 03:45 Glucose 108 mg/dL (65-99) H 12/10/16 03:45 Calcium 8.8 mg/dL (8.5-10.1) 12/10/16 03:45 Corrected Calcium 9.6 mg/dL (8.5-10.1) 12/10/16 03:45 Total Bilirubin 0.20 mg/dL (0.2-1.0) 12/10/16 03:45 AST 18 Units/L (15-37) 12/10/16 03:45 ALT 18 Units/L (12-78) 12/10/16 03:45 Alkaline Phosphatase 15 Units/L (46-116) L 12/10/16 03:45 Total Protein 5.7 g/dL (6.4-8.2) L 12/10/16 03:45 Albumin 3.0 g/dL (3.4-5.0) L 12/10/16 03:45 Globulin 2.7 g/dL (2.5-4.5) 12/10/16 03:45 Albumin/Globulin Ratio 1.1 Ratio (1.1-2.1) 12/10/16 03:45 Specimen Type Clean catch urine 12/06/16 16:40 Urine Color Yellow (YELLOW) 12/06/16 16:40 Urine Appearance Hazy (CLEAR) 12/06/16 16:40 Urine pH 5.0 (5.0 - 8.0) 12/06/16 16:40 Ur Specific [place] 1.020 (1.000-1.030) 12/06/16 16:40 Urine Protein Negative (NEGATIVE) 12/06/16 16:40 Urine Glucose (UA) Negative (NEGATIVE) 12/06/16 16:40 Urine Ketones Negative (NEGATIVE) 12/06/16 16:40 Urine Occult Blood Negative (NEGATIVE) 12/06/16 16:40 Urine Nitrite Negative (NEGATIVE) 12/06/16 16:40 Urine Bilirubin Negative (NEGATIVE) 12/06/16 16:40 Urine Urobilinogen Normal (NORMAL) 12/06/16 16:40 Ur Leukocyte Esterase 1+ (NEGATIVE) 12/06/16 16:40 Urine RBC 0-2 /HPF (NEGATIVE) 12/06/16 16:40 Urine WBC 0-2 /HPF (NEGATIVE) 12/06/16 16:40 Ur Squamous Epith Cells Rare /HPF (NEGATIVE) 12/06/16 16:40 Ur Renal Epithelial Cell Few /HPF (NEGATIVE) 12/06/16 10:50 Urine Bacteria Trace /HPF (NEGATIVE) 12/06/16 16:40 Ur Culture Indicated? No/not indicated 12/06/16 16:40 - Plan (1) Intractable pain Status: Acute Plan: CONTINUE DICLOFENAC ATC, PHYSICAL THERAPY, MONITOR. (2) Left hip pain Status: Acute Plan: ABOVE. (3) Lumbar degenerative disc disease Status: Chronic (4) Arthritis Status: Chronic (5) Hypertension Status: Chronic Qualifiers: Hypertension type: essential hypertension Qualified Code(s): I10 - Essential (primary) hypertension (6) Hyperlipemia Status: Chronic Qualifiers: Hyperlipidemia type: mixed hyperlipidemia Qualified Code(s): E78.2 - Mixed hyperlipidemia (7) GERD (gastroesophageal reflux disease) Status: Chronic Qualifiers: Esophagitis presence: esophagitis presence not specified Qualified Code(s) : K21.9 - Gastro-esophageal reflux disease without esophagitis (8) Hx of breast cancer Status: Chronic
[2016-12-10] MEDS: PRAVACHOL PO SCH (21:18)
[2016-12-10] MEDS: PEPCID TAB 20 MG PO SCH (21:19)
[2016-12-10] MEDS: ZANAFLEX PO SCH (21:19)
[2016-12-10] MEDS: KLONOPIN TAB 0.5 MG PO SCH (21:19)
[2016-12-11] MEDS: NS 1000 ML 1,000 ML IV SCH ×2 (02:58→05:01)
[2016-12-11] MEDS: NEURONTIN CAP 300 MG PO SCH (05:24)
[2016-12-11 06:03] LABS: BASOPHILS % (AUTO) 0.4 % (0.2-1.0); EOSINOPHILS # (AUTO) 0.4 x10^3/uL (0.0-0.2); EOSINOPHILS % (AUTO) 5.1 % (0.9-2.9); HEMATOCRIT 28.8 % (36.0-47.0); HEMOGLOBIN 9.9 g/dL (12.0-16.0); LYMPHOCYTES # (AUTO) 2.6 X10^3/uL (1.3-2.9); LYMPHOCYTES % (AUTO) 38.5 % (21.0-51.0); MEAN CORPUSCULAR HEMOGLOBIN 31.3 pg (27.0-34.0); MEAN CORPUSCULAR HGB CONC 34.4 g/dL (33.0-35.0); MEAN CORPUSCULAR VOLUME 90.9 fL (80.0-100.0); MEAN PLATELET VOLUME 8.6 fL (7.4-11.0); MONOCYTES # (AUTO) 0.6 x10^3/uL (0.3-0.8); MONOCYTES % (AUTO) 8.4 % (0.0-13.0); NEUTROPHILS # (AUTO) 3.3 x10^3/uL (2.2-4.8); NEUTROPHILS % (AUTO) 47.6 % (42.0-75.0); PLATELET COUNT 259 X10^3/uL (150.0-450.0); RED BLOOD COUNT 3.17 X10^6/uL (3.5-5.4); RED CELL DISTRIBUTION WIDTH 12.6 % (11.6-16.5); WHITE BLOOD COUNT 6.9 X10^3/uL (3.6-10.0)
[2016-12-11 06:06] LABS: ALANINE AMINOTRANSFERASE 21 Units/L (12-78); ALBUMIN 2.8 g/dL (3.4-5.0); ALKALINE PHOSPHATASE 13 Units/L (46-116); ASPARTATE AMINO TRANSFERASE 18 Units/L (15-37); BLOOD UREA NITROGEN 23 mg/dL (7-18); CALCIUM 8.7 mg/dL (8.5-10.1); CARBON DIOXIDE 25.4 mmol/L (21-32); CHLORIDE 111 mmol/L (98-107); COR CA(FOR HYPOALB) 9.7 mg/dL (8.5-10.1); GLUCOSE 110 mg/dL (65-99); SODIUM 145 mmol/L (136-145); eGFR BLACK RACES 51 (>60); eGFR NON BLACK RACES 43 (>60)
[2016-12-11] MEDS: PRED FORTE 1 % OP SCH (09:02)
[2016-12-11] MEDS: DIOVAN TAB 160 MG PO SCH (09:02)
[2016-12-11] MEDS: LOPRESSOR TAB 25 MG PO SCH (09:02)
[2016-12-11] MEDS: PROTONIX TAB 40 MG PO SCH (09:02)
[2016-12-11] MEDS: TRICOR TAB 145 MG PO SCH (09:02)
[2016-12-11] MEDS: ASPIRIN EC 81 MG PO SCH (09:02)
[2016-12-11 09:22] VITALS: BP 119/62
== END 2016-12-11 11:05 | disposition home or self-care (01) ==
LOC: ER 07:22 → MED/SURG 15:35
PROVIDERS: ADMIT Internal Medicine; ATTEND Internal Medicine
DX: M54.5 Low back pain (principal); M13.89 Other specified arthritis, multiple sites; R52 Pain, unspecified; M51.36 Other intervertebral disc degeneration, lumbar region; E78.2 Mixed hyperlipidemia; K21.9 Gastro-esophageal reflux disease without esophagitis; I10 Essential (primary) hypertension; Z85.3 Personal history of malignant neoplasm of breast; M48.06 Spinal stenosis, lumbar region; M25.552 Pain in left hip; K57.90 Diverticulosis of intestine, part unspecified, without perforation or abscess without bleeding; D64.89 Other specified anemias; E87.0 Hyperosmolality and hypernatremia; R94.4 Abnormal results of kidney function studies; R26.89 Other abnormalities of gait and mobility; Z79.01 Long term (current) use of anticoagulants; Z79.899 Other long term (current) drug therapy
CPT/HCPCS: 36415; 72148; 73721; 80053; 81001; 84132; 85025; 85730; 94760; 96365; 96374; 96375; 97535; 99284; A4216; A4222; G8978; G8979; G0378; J1885; J2175; J3360

== ENCOUNTER → 2016-12-31 | Outpatient (CLI) | payer OTHER ==
[2016-12-11 09:22] VITALS: BP 119/62
[2016-12-31 11:56] LABS: BASOPHILS % (AUTO) 0.4 % (0.2-1.0); EOSINOPHILS # (AUTO) 0.2 x10^3/uL (0.0-0.2); EOSINOPHILS % (AUTO) 1.5 % (0.9-2.9); HEMATOCRIT 40.8 % (36.0-47.0); HEMOGLOBIN 13.8 g/dL (12.0-16.0); LYMPHOCYTES % (AUTO) 25.9 % (21.0-51.0); MEAN CORPUSCULAR HEMOGLOBIN 30.1 pg (27.0-34.0); MEAN CORPUSCULAR HGB CONC 33.9 g/dL (33.0-35.0); MEAN CORPUSCULAR VOLUME 88.7 fL (80.0-100.0); MEAN PLATELET VOLUME 8.2 fL (7.4-11.0); MONOCYTES # (AUTO) 1.1 x10^3/uL (0.3-0.8); MONOCYTES % (AUTO) 9.5 % (0.0-13.0); NEUTROPHILS # (AUTO) 7.1 x10^3/uL (2.2-4.8); NEUTROPHILS % (AUTO) 62.7 % (42.0-75.0); PLATELET COUNT 500 X10^3/uL (150.0-450.0); RED CELL DISTRIBUTION WIDTH 12.3 % (11.6-16.5); WHITE BLOOD COUNT 11.4 X10^3/uL (3.6-10.0)
[2016-12-31 12:04] LABS: BLOOD UREA NITROGEN 18 mg/dL (7-18); CALCIUM 9.6 mg/dL (8.5-10.1); CARBON DIOXIDE 27.2 mmol/L (21-32); CHLORIDE 100 mmol/L (98-107); CREATININE 1.63 mg/dL (0.55-1.02); GLUCOSE 109 mg/dL (65-99); SODIUM 138 mmol/L (136-145); eGFR BLACK RACES 40 (>60); eGFR NON BLACK RACES 33 (>60)
== END ==
LOC: LAB 11:23
PROVIDERS: ATTEND Neurological Surgery
DX: Z01.818 Encounter for other preprocedural examination (principal); Z01.810 Encounter for preprocedural cardiovascular examination; I10 Essential (primary) hypertension; E78.00 Pure hypercholesterolemia, unspecified
CPT/HCPCS: 36415; 80048; 85025; 93005; 93010

== ENCOUNTER 2018-04-16 10:08 | Inpatient (IN) ==
[2018-04-16] MEDS: NS 1000 ML 1,000 ML IV SCH (11:36)
[2018-04-16 11:49] LABS: BASOPHILS # (AUTO) 0.1 X10^3/uL (0.0-0.1); BASOPHILS % (AUTO) 0.7 % (0.2-1.0); EOSINOPHILS # (AUTO) 0.2 x10^3/uL (0.0-0.2); EOSINOPHILS % (AUTO) 2.8 % (0.9-2.9); HEMOGLOBIN 12.3 g/dL (12.0-16.0); LYMPHOCYTES % (AUTO) 23.9 % (21.0-51.0); MEAN CORPUSCULAR HEMOGLOBIN 31.6 pg (27.0-34.0); MEAN CORPUSCULAR HGB CONC 35.3 g/dL (33.0-35.0); MEAN CORPUSCULAR VOLUME 89.4 fL (80.0-100.0); MEAN PLATELET VOLUME 8.3 fL (7.4-11.0); MONOCYTES # (AUTO) 0.7 x10^3/uL (0.3-0.8); MONOCYTES % (AUTO) 8.5 % (0.0-13.0); NEUTROPHILS # (AUTO) 5.5 x10^3/uL (2.2-4.8); NEUTROPHILS % (AUTO) 64.1 % (42.0-75.0); PLATELET COUNT 421 X10^3/uL (150.0-450.0); RED BLOOD COUNT 3.91 X10^6/uL (3.5-5.4); RED CELL DISTRIBUTION WIDTH 12.6 % (11.6-16.5); WHITE BLOOD COUNT 8.6 X10^3/uL (3.6-10.0)
[2018-04-16 11:57] LABS: BILIRUBIN,URINE NEGATIVE (NEGATIVE); BLOOD/HEMOGLOBIN,URINE 1+ (NEGATIVE); GLUCOSE, URINE NEGATIVE (NEGATIVE); KETONES,URINE NEGATIVE (NEGATIVE); LEUKOCYTE ESTERASE ,URINE NEGATIVE (NEGATIVE); NITRITES,URINE NEGATIVE (NEGATIVE); PROTEIN,URINE NEGATIVE (NEGATIVE); UROBILINOGEN,URINE NORMAL (NORMAL)
[2018-04-16 12:07] LABS: APPEARANCE,URINE CLEAR (CLEAR)
[2018-04-16] MEDS: TORADOL 30 MG VIAL IVP SCH ×4 (12:10→23:00)
[2018-04-16 12:12] LABS: RBC,URINE 0-2 /HPF (NONE SEEN); SQUAMOUS EPITHELIAL CELL,UR RARE /HPF (NEGATIVE)
[2018-04-16 12:13] LABS: BACTERIA,URINE NEGATIVE /HPF (NEGATIVE); COLOR,URINE PALE YELLOW (YELLOW)
[2018-04-16 12:28] VITALS: BMI 25.9
[2018-04-16 14:01] LABS: ALANINE AMINOTRANSFERASE 15 Units/L (12-78); ALBUMIN 3.6 g/dL (3.4-5.0); ALKALINE PHOSPHATASE 17 Units/L (46-116); ASPARTATE AMINO TRANSFERASE 22 Units/L (15-37); BLOOD UREA NITROGEN 22 mg/dL (7-18); CALCIUM 9.3 mg/dL (8.5-10.1); CARBON DIOXIDE 25.1 mmol/L (21-32); CHLORIDE 101 mmol/L (98-107); CREATININE 1.52 mg/dL (0.55-1.02); SODIUM 135 mmol/L (136-145); TOTAL PROTEIN 7.6 g/dL (6.4-8.2); eGFR NON BLACK RACES 35 (>60)
[2018-04-16] MEDS ORDERED: DEMEROL INJ IVP PRN (17:27)
[2018-04-16] MEDS: ZANAFLEX PO SCH (20:52)
[2018-04-16] MEDS: PEPCID TAB 20 MG PO SCH (22:01)
[2018-04-16] MEDS: KLONOPIN TAB 0.5 MG PO SCH (22:01)
[2018-04-16] MEDS: ASPIRIN EC 81 MG PO SCH (22:01)
[2018-04-16] MEDS: PRAVACHOL PO SCH (22:02)
[2018-04-16] MEDS: TRICOR TAB 145 MG PO SCH (22:02)
[2018-04-17] MEDS: NS 1000 ML 1,000 ML IV SCH ×3 (00:04→13:45)
[2018-04-17] MEDS: TORADOL 30 MG VIAL IVP SCH ×3 (05:06→17:01)
[2018-04-17 06:15] LABS: BASOPHILS % (AUTO) 0.4 % (0.2-1.0); EOSINOPHILS # (AUTO) 0.3 x10^3/uL (0.0-0.2); EOSINOPHILS % (AUTO) 3.9 % (0.9-2.9); HEMATOCRIT 30.4 % (36.0-47.0); HEMOGLOBIN 10.7 g/dL (12.0-16.0); LYMPHOCYTES # (AUTO) 2.8 X10^3/uL (1.3-2.9); LYMPHOCYTES % (AUTO) 39.7 % (21.0-51.0); MEAN CORPUSCULAR HEMOGLOBIN 31.8 pg (27.0-34.0); MEAN CORPUSCULAR HGB CONC 35.3 g/dL (33.0-35.0); MEAN CORPUSCULAR VOLUME 90.1 fL (80.0-100.0); MEAN PLATELET VOLUME 8.7 fL (7.4-11.0); MONOCYTES # (AUTO) 0.7 x10^3/uL (0.3-0.8); MONOCYTES % (AUTO) 10.1 % (0.0-13.0); NEUTROPHILS # (AUTO) 3.3 x10^3/uL (2.2-4.8); NEUTROPHILS % (AUTO) 45.9 % (42.0-75.0); PLATELET COUNT 329 X10^3/uL (150.0-450.0); RED BLOOD COUNT 3.38 X10^6/uL (3.5-5.4); RED CELL DISTRIBUTION WIDTH 12.4 % (11.6-16.5); WHITE BLOOD COUNT 7.1 X10^3/uL (3.6-10.0)
[2018-04-17 06:34] LABS: ALANINE AMINOTRANSFERASE 20 Units/L (12-78); ALBUMIN 2.9 g/dL (3.4-5.0); ALKALINE PHOSPHATASE 13 Units/L (46-116); ASPARTATE AMINO TRANSFERASE 19 Units/L (15-37); BLOOD UREA NITROGEN 30 mg/dL (7-18); CALCIUM 8.4 mg/dL (8.5-10.1); CARBON DIOXIDE 23.8 mmol/L (21-32); CHLORIDE 104 mmol/L (98-107); COR CA(FOR HYPOALB) 9.3 mg/dL (8.5-10.1); CREATININE 1.74 mg/dL (0.55-1.02); SODIUM 136 mmol/L (136-145); TOTAL PROTEIN 6.3 g/dL (6.4-8.2); eGFR NON BLACK RACES 30 (>60)
[2018-04-17] MEDS ORDERED: PATIENT'S HOME MEDICATION (Valsartan-Hydrochlorothiazide [Valsartan-Hydrochlorothiazide] 1 PO SCH (09:00)
[2018-04-17] MEDS: TOPROL XL PO SCH (09:22)
[2018-04-17] MEDS: HYDROCHLOROTHIAZIDE 12.5 MG CAP PO SCH (09:22)
[2018-04-17] MEDS: PROTONIX TAB 40 MG PO SCH (09:22)
[2018-04-17] MEDS: DIOVAN TAB 80 MG PO SCH (09:22)
[2018-04-17] MEDS: ZANAFLEX PO SCH ×4 (09:22→21:48)
[2018-04-17] MEDS: WELLBUTRIN XL 150 MG (DAILY) PO SCH (09:23)
[2018-04-17] MEDS ORDERED: PREVNAR 13 IM ONE (13:41)
[2018-04-17] MEDS: MORPHINE SULFATE INJ 2 MG INJ IVP PRN (15:50)
[2018-04-17] MEDS ORDERED: MORPHINE SULFATE INJ 2 MG INJ IVP ONE (16:58)
[2018-04-17] MEDS: ZOFRAN INJ 4 MG VIAL IVP PRN (17:55)
--- NOTE | 2018-04-17 18:53 | MRI ---
MRI of the lumbar spine Indication: Severe low back pain Comparison: MRI of the lumbar spine done December 07, 2016. Findings: There is no fracture or malalignment of the lumbar spine. The conus terminates normally at T12. Discogenic degenerative disease and prior L4-L5 surgery will be discussed on a level by level ba sis. T12-L1. No discogenic degenerative disease is seen. There is mild to moderate facet arthropathy which causes mild posterior central canal stenosis. There is mild bilateral neural foraminal narrowing. L1-L2. There is no small circumferential disc disease . There is mild facet arthropathy and ligamentu m flavum hypertrophy causing mild posterior central canal stenosis. There is mild bilateral neural fo raminal narrowing. L2-L3: There is circumferential disc bulge with moderate facet arthropathy narrowing both lateral rec esses. The right hypertrophy facet is indenting the adjacent thecal sac. There is likely abutment of the descending right L3 nerve root. There is focal moderate central canal stenosis at this level. The re is moderate bilateral neural foraminal narrowing. L3-L4 there is circumferential disc bulge with moderate facet arthropathy. There is asymmetrical posi tioning of the descending nerve roots within the right posterior lateral canal. There is mild central canal stenosis. Mild neural foraminal stenosis is seen as well L4-L5. There is a large circumferential disc bulge with a left paracentral disc protrusion extrusion inferiorly. This is causing severe narrowing of the left lateral recess as well as severe central can al stenosis. Advanced facet arthropathy is present. There is likely impingement of the descending ner ve roots. There is mild to moderate right and moderate to left neural foraminal narrowing. There is l ow T2 signal which extends from the postsurgical site to the lamina which is also contributing to the central canal stenosis at the L4-L5 level. L5-S1. There is disc desiccation with small disc bulge and advanced facet arthropathy with mild to mo derate bilateral neural foraminal narrowing. No central canal stenosis is seen. Conclusion: 1. Multilevel discogenic degenerative disease as described above 2. Severe central canal narrowing at L4-L5. The contributing factors are circumferential disc bulge w ith facet arthropathy as well as what appears to be postsurgical changes. Artifact and lack of contra st limits evaluation to the degree that the hardware/postsurgical changes contribute to the narrowing . 3. Central canal stenosis is also noted at T12-L1, L1-L2 , L2-L3 and L3-L4 Reported By:
[2018-04-17] MEDS: ASPIRIN EC 81 MG PO SCH (21:39)
[2018-04-17] MEDS: KLONOPIN TAB 0.5 MG PO SCH (21:39)
[2018-04-17] MEDS: PRAVACHOL PO SCH (21:40)
[2018-04-17] MEDS: TRICOR TAB 145 MG PO SCH (21:40)
[2018-04-17] MEDS: PEPCID TAB 20 MG PO SCH (21:40)
--- NOTE | 2018-04-17 21:53 | DR.H&P ---
H&P - History & Physical for Day of: H&P Date: 04/16/18 - Chief Complaint Chief Complaint: LOWER BACK PAIN - History of Present Illness History of Present Illness: IS A 77 YEAR OLD PATIENT OF OURS. SHE PRESENTED TO THE HOSPITAL A DIRECT ADMISSION WITH COMPLAINTS OF SEVERE LOWER BACK PAIN. PATIENT REPORTS THAT PAIN RADIATES DOWN THE LEFT LEG. SHE REPORTS THAT SHE HAS ONLY BEEN ABLE TO AMBULATE SHORT DISTANCES OF THE PAST THREE DAYS WITHOUT BEING IN SEVERE PAIN. PATIENT REPORTS THAT LYING ON HER RIGHT SIDE IS THE ONLY THING THAT EASES HER PAIN. ON ADMISSION, VITALS WERE 98.5, 94, 20, 94% RA, 153/72. LABS WERE OBTAINED. ABNORMAL LAB VALUES INCLUDE THE FOLLOWING: HCT 35.0, MCHC 35.3, Sodium 135, BUN 22, Creatinine 1.52, GFR (AA) 43, GFR (NON) 35 , Glucose 107, Alkaline Phosphatase 17, A/G ratio 0.9. Urinalysis: Occult Blood 1+, RBC 0-2, WBC 0-2. WE STARTED HER ON IV TORADOL FOR PAIN CONTROL AND NORMAL SALINE AT 50ML/HR FOR GENTLE IV HYDRATION. WE PLAN TO OBTAIN A MRI OF THE LUMBAR SPINE IN THE MORNING. OTHERWISE, WE WILL FOLLOW UP WITH AM LABS AND CONTINUE TO MONITOR PATIENT. - Past Medical History Past Medical History: Anemia, Dyslipidemia, GERD, Hypertension Additional Medical History: Cataracts, Ear Infections, Constipation, Urinary Tract Infections, Osteoarthritis, Back Pain, DJD, Previous Blood Transfusion, Right Breast Cancer - Past Surgical History Surgical History: Cholecystectomy, Mastectomy Additional Surgical History: Right Mastectomy - Family History Family Medical History: PA, Coronary Artery Disease, Hypertension - Social History Does patient currently use any type of tobacco product: No Have you used tobacco products in the last 12 months: No Type of Tobacco Use: None Does any household member use tobacco: No Alcohol Use: None Drug Use: None - Medications Home Medications: hydromorphone [From Dilaudid] Allergy (Verified 04/16/18 11:08) CONTINUE taking the following medications bupropion HCl 1 tab PO DAILY 04/16/18 [History] clonazepam 0.5 mg PO HS PRN 04/16/18 [History] doxycycline hyclate 100 mg PO BID 04/16/18 [History] metoprolol succinate 50 mg PO DAILY 04/16/18 [History] pravastatin 20 mg PO HS 04/16/18 [History] valsartan-hydrochlorothiazide 1 tab PO DAILY 04/16/18 [History] - Review of Systems Constitutional: No Symptoms Reported Eyes: No Symptoms Reported ENT: No Symptoms Reported Respiratory: No Symptoms Reported Cardiovascular: No Symptoms Reported Gastrointestinal: No Symptoms Reported Genitourinary: No Symptoms Reported Musculoskeletal: Back Pain, Leg Pain Skin: No Symptoms Reported Neurological: No Symptoms Reported - Physical Exam Vital Signs: Temperature 97.6 F Pulse Rate [Right Brachial] 79 Respiratory Rate 20 Blood Pressure [Right Arm] 184/72 Blood Pressure [Left Arm] 100/59 Blood Pressure 119/62 O2 Sat by Pulse Oximetry 93 Oriented: Normal Eyes: Normal Ear: Normal Nose: Normal Throat: Normal Respiratory: Clear Throughout Cardiovascular: Normal : Normal Auscultation: Bowel Sounds: Normal Palpation: Normal Tenderness: Normal Skin: Normal Musculoskeletal: Left, Leg, Back:Lumbar, Sensory Deficit Psychiatric: Normal Mood Description: Calm Affect: Normal Speech Pattern: Clear - Assessment/Plan (1) Intractable pain Status: Acute Plan: ADMIT, SCHEDULED IV TORADOL FOR PAIN CONTROL, MRI TOMORROW MORNING, CONTINUE TO MONITOR (2) Radiculopathy of lumbar region Status: Acute - Allergies Allergies/Adverse Reactions: Allergies Allergy/AdvReac Type Severity Reaction Status Date / Time hydromorphone [From Dilaudid] Allergy Verified 04/16/18 11:08
[2018-04-18] MEDS: TORADOL 30 MG VIAL IVP SCH ×4 (00:02→18:00)
[2018-04-18] MEDS: NS 1000 ML 1,000 ML IV SCH ×3 (00:58→14:51)
[2018-04-18 04:50] LABS: BASOPHILS # (AUTO) 0.1 X10^3/uL (0.0-0.1); BASOPHILS % (AUTO) 0.8 % (0.2-1.0); EOSINOPHILS # (AUTO) 0.3 x10^3/uL (0.0-0.2); EOSINOPHILS % (AUTO) 4.1 % (0.9-2.9); HEMATOCRIT 31.1 % (36.0-47.0); LYMPHOCYTES # (AUTO) 2.7 X10^3/uL (1.3-2.9); LYMPHOCYTES % (AUTO) 33.6 % (21.0-51.0); MEAN CORPUSCULAR HEMOGLOBIN 31.8 pg (27.0-34.0); MEAN CORPUSCULAR HGB CONC 35.4 g/dL (33.0-35.0); MEAN PLATELET VOLUME 8.7 fL (7.4-11.0); MONOCYTES # (AUTO) 0.7 x10^3/uL (0.3-0.8); MONOCYTES % (AUTO) 8.3 % (0.0-13.0); NEUTROPHILS # (AUTO) 4.3 x10^3/uL (2.2-4.8); NEUTROPHILS % (AUTO) 53.2 % (42.0-75.0); PLATELET COUNT 306 X10^3/uL (150.0-450.0); RED BLOOD COUNT 3.45 X10^6/uL (3.5-5.4); RED CELL DISTRIBUTION WIDTH 12.7 % (11.6-16.5); WHITE BLOOD COUNT 8.2 X10^3/uL (3.6-10.0)
[2018-04-18 04:57] LABS: ALANINE AMINOTRANSFERASE 20 Units/L (12-78); ALBUMIN 2.9 g/dL (3.4-5.0); ALKALINE PHOSPHATASE 12 Units/L (46-116); ASPARTATE AMINO TRANSFERASE 21 Units/L (15-37); BLOOD UREA NITROGEN 29 mg/dL (7-18); CALCIUM 8.5 mg/dL (8.5-10.1); CARBON DIOXIDE 24.9 mmol/L (21-32); CHLORIDE 104 mmol/L (98-107); COR CA(FOR HYPOALB) 9.4 mg/dL (8.5-10.1); CREATININE 1.57 mg/dL (0.55-1.02); SODIUM 135 mmol/L (136-145); TOTAL PROTEIN 6.2 g/dL (6.4-8.2); eGFR NON BLACK RACES 34 (>60)
[2018-04-18] MEDS: ZANAFLEX PO SCH ×3 (05:04→21:02)
[2018-04-18] MEDS: TOPROL XL PO SCH (08:42)
[2018-04-18] MEDS: DIOVAN TAB 80 MG PO SCH (08:43)
[2018-04-18] MEDS: PROTONIX TAB 40 MG PO SCH (08:43)
[2018-04-18] MEDS: WELLBUTRIN XL 150 MG (DAILY) PO SCH (08:44)
[2018-04-18] MEDS: HYDROCHLOROTHIAZIDE 12.5 MG CAP PO SCH ×2 (08:44)
--- NOTE | 2018-04-18 18:30 | PCM.PROG ---
Progress Note - Progress Note for Day of Date of Exam: 04/17/18 - Subjective Subjective: WAS ADMITTED FOR INTRACTABLE LOWER BACK PAIN. TODAY, SHE IS ALERT AND ORIENTED, LYING IN BED ON MORNING ROUNDS. SHE CONTINUES WITH SEVERE PAIN TO THE LOWER BACK. SHE REPORTS THAT PAIN CONTINUES TO RADIATE DOWN THE LEFT LEG. ON EXAMINATION, HEART IS REGULAR IN RATE AND RHYTHM. BILATERAL LUNGS ARE CLEAR TO AUSCULTATION. ABDOMEN IS ROUND, SOFT, AND NON-TENDER WITH NORMAL BOWEL SOUNDS NOTED IN ALL QUADRANTS. THERE IS MODERATE TENDERNESS NOTED TO THE LUMBAR SPINE ON EXAMINATION. HER VITALS TODAY ARE 97.6-73-20-95%-163/72. LABS WERE OBTAINED. ABNORMAL LAB VALUES INCLUDE THE FOLLOWING: RBC 3.38, HGB 10.7, HCT 30.4, BUN 30, CREATININE 1.74, GLUCOSE 108, CALCIUM 8.4, ALK PHOS 13, TOTAL PROTEIN 6.3, ALBMIN 2.9. TODAY, WE WILL OBTAIN A LUMBAR SPINE MRI AND START ZANAFLEX 4MG PO TID. OTHERWISE, WE WILL FOLLOW-UP WITH AM LABS AND CONTINUE TO MONITOR PATIENT. - Past Medical Family Social History Past Med/Fam/Surg Hx: No changes since H&P Allergies: Allergies hydromorphone [From Dilaudid] Allergy (Verified 04/16/18 11:08) - Review of Systems ROS: No change since H&P - Vital Signs and I&O's Vital Signs: Temperature 98.3 F Pulse Rate [Right Brachial] 73 Respiratory Rate 20 Blood Pressure [Right Arm] 158/95 Blood Pressure [Left Arm] 114/56 Blood Pressure 119/62 O2 Sat by Pulse Oximetry 96 Intake and Output: Intake & Output 04/16/18 04/17/18 04/18/18 04/19/18 11:59 11:59 11:59 11:59 Intake Total 1763 / 1763 1923 / 1923 1190 / 1190 Output Total 850 / 850 1300 / 1300 1500 / 1500 Balance 913 / 913 623 / 623 -310 / -310 - Physical Exam Oriented: Normal Eyes: Normal Ear: Normal Nose: Normal Throat: Normal Cardiovascular: Normal : Normal Auscultation: Bowel Sounds: Normal Tenderness: Normal Skin: Normal Musculoskeletal: Left, Leg, Back:Lumbar, Sensory Deficit Psychiatric: Normal Mood Description: Calm Affect: Normal Speech Pattern: Clear, Appropriate - Laboratory and Diagnostics Result Diagrams: 04/19/18 04:41 04/19/18 04:41 Labs: 04/16/18 11:07 Urine,Clean Catch Urine Culture - Final Laboratory WBC 8.2 X10^3/uL (3.6-10.0) 04/18/18 04:35 RBC 3.45 X10^6/uL (3.5-5.4) L 04/18/18 04:35 Hgb 11.0 g/dL (12.0-16.0) L 04/18/18 04:35 Hct 31.1 % (36.0-47.0) L 04/18/18 04:35 MCV 90.0 fL (80.0-100.0) 04/18/18 04:35 MCH 31.8 pg (27.0-34.0) 04/18/18 04:35 MCHC 35.4 g/dL (33.0-35.0) H 04/18/18 04:35 RDW 12.7 % (11.6-16.5) 04/18/18 04:35 Plt Count 306 X10^3/uL (150.0-450.0) 04/18/18 04:35 MPV 8.7 fL (7.4-11.0) 04/18/18 04:35 Neut % (Auto) 53.2 % (42.0-75.0) 04/18/18 04:35 Lymph % (Auto) 33.6 % (21.0-51.0) 04/18/18 04:35 [place] % (Auto) 8.3 % (0.0-13.0) 04/18/18 04:35 Eos % (Auto) 4.1 % (0.9-2.9) H 04/18/18 04:35 Baso % (Auto) 0.8 % (0.2-1.0) 04/18/18 04:35 Neut # (Auto) 4.3 x10^3/uL (2.2-4.8) 04/18/18 04:35 Lymph # (Auto) 2.7 X10^3/uL (1.3-2.9) 04/18/18 04:35 [place] # (Auto) 0.7 x10^3/uL (0.3-0.8) 04/18/18 04:35 Eos # (Auto) 0.3 x10^3/uL (0.0-0.2) H 04/18/18 04:35 Baso # (Auto) 0.1 X10^3/uL (0.0-0.1) 04/18/18 04:35 Absolute Nucleated RBC 0.1 /100WBC 04/18/18 04:35 Sodium 135 mmol/L (136-145) L 04/18/18 04:35 Corrected Sodium TNP 04/18/18 04:35 Potassium 3.9 mmol/L (3.5-5.1) 04/18/18 04:35 Chloride 104 mmol/L (98-107) 04/18/18 04:35 Carbon Dioxide 24.9 mmol/L (21-32) 04/18/18 04:35 BUN 29 mg/dL (7-18) H 04/18/18 04:35 Creatinine 1.57 mg/dL (0.55-1.02) H 04/18/18 04:35 Est GFR (MDRD) Af Amer 41 (>60) L 04/18/18 04:35 Est GFR (MDRD) Non-Af 34 (>60) L 04/18/18 04:35 Glucose 97 mg/dL (65-99) 04/18/18 04:35 Calcium 8.5 mg/dL (8.5-10.1) 04/18/18 04:35 Corrected Calcium 9.4 mg/dL (8.5-10.1) 04/18/18 04:35 Total Bilirubin 0.20 mg/dL (0.2-1.0) 04/18/18 04:35 AST 21 Units/L (15-37) 04/18/18 04:35 ALT 20 Units/L (12-78) 04/18/18 04:35 Alkaline Phosphatase 12 Units/L (46-116) L 04/18/18 04:35 Total Protein 6.2 g/dL (6.4-8.2) L 04/18/18 04:35 Albumin 2.9 g/dL (3.4-5.0) L 04/18/18 04:35 Globulin 3.3 g/dL (2.5-4.5) 04/18/18 04:35 Albumin/Globulin Ratio 0.9 Ratio (1.1-2.1) L 04/18/18 04:35 Specimen Type Clean catch urine 04/16/18 11:07 Urine Color Pale yellow (YELLOW) 04/16/18 11:07 Urine Appearance Clear (CLEAR) 04/16/18 11:07 Urine pH 6.0 (5.0 - 8.0) 04/16/18 11:07 Ur Specific [place] 1.010 (1.000-1.030) 04/16/18 11:07 Urine Protein Negative (NEGATIVE) 04/16/18 11:07 Urine Glucose (UA) Negative (NEGATIVE) 04/16/18 11:07 Urine Ketones Negative (NEGATIVE) 04/16/18 11:07 Urine Occult Blood 1+ (NEGATIVE) 04/16/18 11:07 Urine Nitrite Negative (NEGATIVE) 04/16/18 11:07 Urine Bilirubin Negative (NEGATIVE) 04/16/18 11:07 Urine Urobilinogen Normal (NORMAL) 04/16/18 11:07 Ur Leukocyte Esterase Negative (NEGATIVE) 04/16/18 11:07 Urine RBC 0-2 /HPF (NONE SEEN) 04/16/18 11:07 Urine WBC 0-2 /HPF (NONE SEEN) 04/16/18 11:07 Ur Squamous Epith Cells Rare /HPF (NEGATIVE) 04/16/18 11:07 Urine Bacteria Negative /HPF (NEGATIVE) 04/16/18 11:07 Ur Culture Indicated? Yes/culture set up 04/16/18 11:07 - Plan (1) Intractable pain Status: Acute Plan: ADMIT, SCHEDULED IV TORADOL FOR PAIN CONTROL, MRI TODAY, ZANAFLEX 4MG PO TID, CONTINUE TO MONITOR (2) Radiculopathy of lumbar region Status: Acute
[2018-04-18] MEDS: ASPIRIN EC 81 MG PO SCH (21:01)
[2018-04-18] MEDS: KLONOPIN TAB 0.5 MG PO SCH (21:01)
[2018-04-18] MEDS: TRICOR TAB 145 MG PO SCH (21:02)
[2018-04-18] MEDS: PEPCID TAB 20 MG PO SCH (21:02)
[2018-04-18] MEDS: PRAVACHOL PO SCH (21:02)
[2018-04-19] MEDS: TORADOL 30 MG VIAL IVP SCH ×4 (00:32→19:00)
[2018-04-19 05:10] LABS: BASOPHILS % (AUTO) 0.4 % (0.2-1.0); EOSINOPHILS # (AUTO) 0.3 x10^3/uL (0.0-0.2); EOSINOPHILS % (AUTO) 3.9 % (0.9-2.9); HEMATOCRIT 31.9 % (36.0-47.0); HEMOGLOBIN 11.1 g/dL (12.0-16.0); LYMPHOCYTES # (AUTO) 2.7 X10^3/uL (1.3-2.9); LYMPHOCYTES % (AUTO) 34.1 % (21.0-51.0); MEAN CORPUSCULAR HEMOGLOBIN 31.6 pg (27.0-34.0); MEAN CORPUSCULAR HGB CONC 34.9 g/dL (33.0-35.0); MEAN CORPUSCULAR VOLUME 90.5 fL (80.0-100.0); MEAN PLATELET VOLUME 8.3 fL (7.4-11.0); MONOCYTES # (AUTO) 0.8 x10^3/uL (0.3-0.8); MONOCYTES % (AUTO) 10.1 % (0.0-13.0); NEUTROPHILS # (AUTO) 4.1 x10^3/uL (2.2-4.8); NEUTROPHILS % (AUTO) 51.5 % (42.0-75.0); PLATELET COUNT 337 X10^3/uL (150.0-450.0); RED BLOOD COUNT 3.52 X10^6/uL (3.5-5.4); RED CELL DISTRIBUTION WIDTH 12.7 % (11.6-16.5)
[2018-04-19 05:16] LABS: ALANINE AMINOTRANSFERASE 21 Units/L (12-78); ALBUMIN 2.9 g/dL (3.4-5.0); ALKALINE PHOSPHATASE 14 Units/L (46-116); ASPARTATE AMINO TRANSFERASE 21 Units/L (15-37); BLOOD UREA NITROGEN 27 mg/dL (7-18); CALCIUM 8.5 mg/dL (8.5-10.1); CARBON DIOXIDE 25.3 mmol/L (21-32); CHLORIDE 107 mmol/L (98-107); COR CA(FOR HYPOALB) 9.4 mg/dL (8.5-10.1); CREATININE 1.56 mg/dL (0.55-1.02); SODIUM 139 mmol/L (136-145); TOTAL PROTEIN 6.3 g/dL (6.4-8.2); eGFR NON BLACK RACES 34 (>60)
[2018-04-19] MEDS: NS 1000 ML 1,000 ML IV SCH ×3 (05:18→21:56)
[2018-04-19] MEDS: ZANAFLEX PO SCH ×3 (05:19→21:55)
[2018-04-19] MEDS: ZOFRAN INJ 4 MG VIAL IVP PRN (08:01)
[2018-04-19] MEDS: DIOVAN TAB 80 MG PO SCH (08:39)
[2018-04-19] MEDS: TOPROL XL PO SCH (08:40)
[2018-04-19] MEDS: MORPHINE SULFATE INJ 2 MG INJ IVP PRN (08:40)
[2018-04-19] MEDS: PROTONIX TAB 40 MG PO SCH (08:40)
[2018-04-19] MEDS: WELLBUTRIN XL 150 MG (DAILY) PO SCH (08:40)
[2018-04-19] MEDS: HYDROCHLOROTHIAZIDE 12.5 MG CAP PO SCH (08:40)
[2018-04-19] MEDS ORDERED: SOLU-Medrol 125 MG VIAL ONE (08:48)
[2018-04-19] MEDS ORDERED: VALIUM ONE (08:49)
[2018-04-19] MEDS: VALIUM PO SCH ×3 (09:12→21:55)
[2018-04-19] MEDS ORDERED: PERCOCET TAB 5/325 MG PO PRN (09:25)
[2018-04-19] MEDS ORDERED: SOLU-Medrol 125 MG VIAL IVP SCH (10:00)
--- NOTE | 2018-04-19 11:10 | PCM.PROG ---
Progress Note - Progress Note for Day of Date of Exam: 04/18/18 - Subjective Subjective: WAS ADMITTED FOR INTRACTABLE LOWER BACK PAIN. TODAY, SHE IS ALERT AND ORIENTED, LYING IN BED ON MORNING ROUNDS. SHE CONTINUES WITH SEVERE PAIN TO THE LOWER BACK. SHE REPORTS THAT PAIN CONTINUES TO RADIATE DOWN THE LEFT LEG AND IS WORSE TODAY THAN YESTERDAY. ON EXAMINATION, HEART IS REGULAR IN RATE AND RHYTHM. BILATERAL LUNGS ARE CLEAR TO AUSCULTATION. ABDOMEN IS ROUND, SOFT, AND NON-TENDER WITH NORMAL BOWEL SOUNDS NOTED IN ALL QUADRANTS. THERE IS MODERATE TENDERNESS NOTED TO THE LUMBAR SPINE ON EXAMINATION. HER VITALS TODAY ARE 98.0-71-20-97%-166/70. LABS WERE OBTAINED. ABNORMAL LAB VALUES INCLUDE THE FOLLOWING: RBC 3.45, HGB 11.0, HCT 31.1, SODIUM 135, BUN 29, CREATININE 1.57, ALK PHOS 12, TOTAL PROTEIN 6.2, ALBUMIN 2.9. A LUMBAR SPINE MRI WAS OBTAINED TODAY AND REVEALED: 1. Multilevel discogenic degenerative disease as described above 2. Severe central canal narrowing at L4-L5. The contributing factors are circumferential disc bulge with facet arthropathy as well as what appears to be postsurgical changes. Artifact and lack of contrast limits evaluation to the degree that the hardware/postsurgical changes contribute to the narrowing. 3. Central canal stenosis is also noted at T12-L1, L1-L2 , L2-L3 and L3-L4. TODAY, WE WILL CONTINUE WITH CURRENT PLAN OF CARE AND DISCUSS RESULTS WITH . OTHERWISE, WE WILL FOLLOW-UP WITH AM LABS AND CONTINUE TO MONITOR PATIENT. - Past Medical Family Social History Past Med/Fam/Surg Hx: No changes since H&P Allergies: Allergies hydromorphone [From Dilaudid] Allergy (Verified 04/16/18 11:08) - Review of Systems ROS: No change since H&P - Vital Signs and I&O's Vital Signs: Temperature 97.8 F Pulse Rate [Right Brachial] 74 Respiratory Rate 22 Blood Pressure [Right Arm] 151/65 Blood Pressure [Left Arm] 114/56 Blood Pressure 119/62 O2 Sat by Pulse Oximetry 97 Intake and Output: Intake & Output 04/16/18 04/17/18 04/18/18 04/19/18 11:59 11:59 11:59 11:59 Intake Total 1763 / 1763 1923 / 1923 1190 / 1190 Output Total 850 / 850 1300 / 1300 2300 / 2300 Balance 913 / 913 623 / 623 -1110 / -1110 - Physical Exam Oriented: Normal Eyes: Normal Ear: Normal Nose: Normal Throat: Normal Cardiovascular: Normal : Normal Auscultation: Bowel Sounds: Normal Palpation: Normal Tenderness: Normal Skin: Normal Musculoskeletal: Left, Leg, Back:Lumbar, Sensory Deficit Psychiatric: Normal Mood Description: Calm Affect: Normal Speech Pattern: Clear, Appropriate - Laboratory and Diagnostics Result Diagrams: 04/19/18 04:41 04/19/18 04:41 Labs: 04/16/18 11:07 Urine,Clean Catch Urine Culture - Final Laboratory WBC 8.0 X10^3/uL (3.6-10.0) 04/19/18 04:41 RBC 3.52 X10^6/uL (3.5-5.4) 04/19/18 04:41 Hgb 11.1 g/dL (12.0-16.0) L 04/19/18 04:41 Hct 31.9 % (36.0-47.0) L 04/19/18 04:41 MCV 90.5 fL (80.0-100.0) 04/19/18 04:41 MCH 31.6 pg (27.0-34.0) 04/19/18 04:41 MCHC 34.9 g/dL (33.0-35.0) 04/19/18 04:41 RDW 12.7 % (11.6-16.5) 04/19/18 04:41 Plt Count 337 X10^3/uL (150.0-450.0) 04/19/18 04:41 MPV 8.3 fL (7.4-11.0) 04/19/18 04:41 Neut % (Auto) 51.5 % (42.0-75.0) 04/19/18 04:41 Lymph % (Auto) 34.1 % (21.0-51.0) 04/19/18 04:41 [place] % (Auto) 10.1 % (0.0-13.0) 04/19/18 04:41 Eos % (Auto) 3.9 % (0.9-2.9) H 04/19/18 04:41 Baso % (Auto) 0.4 % (0.2-1.0) 04/19/18 04:41 Neut # (Auto) 4.1 x10^3/uL (2.2-4.8) 04/19/18 04:41 Lymph # (Auto) 2.7 X10^3/uL (1.3-2.9) 04/19/18 04:41 [place] # (Auto) 0.8 x10^3/uL (0.3-0.8) 04/19/18 04:41 Eos # (Auto) 0.3 x10^3/uL (0.0-0.2) H 04/19/18 04:41 Baso # (Auto) 0.0 X10^3/uL (0.0-0.1) 04/19/18 04:41 Absolute Nucleated RBC 0.0 /100WBC 04/19/18 04:41 Sodium 139 mmol/L (136-145) 04/19/18 04:41 Corrected Sodium TNP 04/19/18 04:41 Potassium 3.9 mmol/L (3.5-5.1) 04/19/18 04:41 Chloride 107 mmol/L (98-107) 04/19/18 04:41 Carbon Dioxide 25.3 mmol/L (21-32) 04/19/18 04:41 BUN 27 mg/dL (7-18) H 04/19/18 04:41 Creatinine 1.56 mg/dL (0.55-1.02) H 04/19/18 04:41 Est GFR (MDRD) Af Amer 42 (>60) L 04/19/18 04:41 Est GFR (MDRD) Non-Af 34 (>60) L 04/19/18 04:41 Glucose 93 mg/dL (65-99) 04/19/18 04:41 Calcium 8.5 mg/dL (8.5-10.1) 04/19/18 04:41 Corrected Calcium 9.4 mg/dL (8.5-10.1) 04/19/18 04:41 Total Bilirubin 0.20 mg/dL (0.2-1.0) 04/19/18 04:41 AST 21 Units/L (15-37) 04/19/18 04:41 ALT 21 Units/L (12-78) 04/19/18 04:41 Alkaline Phosphatase 14 Units/L (46-116) L 04/19/18 04:41 Total Protein 6.3 g/dL (6.4-8.2) L 04/19/18 04:41 Albumin 2.9 g/dL (3.4-5.0) L 04/19/18 04:41 Globulin 3.4 g/dL (2.5-4.5) 04/19/18 04:41 Albumin/Globulin Ratio 0.9 Ratio (1.1-2.1) L 04/19/18 04:41 Specimen Type Clean catch urine 04/16/18 11:07 Urine Color Pale yellow (YELLOW) 04/16/18 11:07 Urine Appearance Clear (CLEAR) 04/16/18 11:07 Urine pH 6.0 (5.0 - 8.0) 04/16/18 11:07 Ur Specific [place] 1.010 (1.000-1.030) 04/16/18 11:07 Urine Protein Negative (NEGATIVE) 04/16/18 11:07 Urine Glucose (UA) Negative (NEGATIVE) 04/16/18 11:07 Urine Ketones Negative (NEGATIVE) 04/16/18 11:07 Urine Occult Blood 1+ (NEGATIVE) 04/16/18 11:07 Urine Nitrite Negative (NEGATIVE) 04/16/18 11:07 Urine Bilirubin Negative (NEGATIVE) 04/16/18 11:07 Urine Urobilinogen Normal (NORMAL) 04/16/18 11:07 Ur Leukocyte Esterase Negative (NEGATIVE) 04/16/18 11:07 Urine RBC 0-2 /HPF (NONE SEEN) 04/16/18 11:07 Urine WBC 0-2 /HPF (NONE SEEN) 04/16/18 11:07 Ur Squamous Epith Cells Rare /HPF (NEGATIVE) 04/16/18 11:07 Urine Bacteria Negative /HPF (NEGATIVE) 04/16/18 11:07 Ur Culture Indicated? Yes/culture set up 04/16/18 11:07 - Plan (1) Intractable pain Status: Acute Plan: ADMIT, SCHEDULED IV TORADOL FOR PAIN CONTROL, ZANAFLEX 4MG PO TID, CONTINUE TO MONITOR (2) Radiculopathy of lumbar region Status: Acute (3) Degenerative disc disease Status: Acute Qualifiers: Spinal region: lumbar Qualified Code(s): M51.36 - Other intervertebral disc degeneration, lumbar region
[2018-04-19] MEDS: NEURONTIN CAP 400 MG PO SCH ×4 (11:15→21:55)
[2018-04-19] MEDS: SOLU-Medrol 40 MG VIAL IVP SCH ×2 (14:24→21:55)
--- NOTE | 2018-04-19 15:27 | PCM.PROG ---
Progress Note - Progress Note for Day of Date of Exam: 04/19/18 - Subjective Subjective: WAS ADMITTED FOR INTRACTABLE LOWER BACK PAIN. TODAY, SHE IS ALERT AND ORIENTED, LYING IN BED ON MORNING ROUNDS. SHE IS CRYING AND CONTINUES WITH SEVERE PAIN TO THE LOWER BACK. SHE REPORTS THAT PAIN CONTINUES TO RADIATE DOWN THE LEFT LEG AND CONTINUES TO WORSEN. SHE REPORTS THAT SHE IS UNABLE TO GET OUT OF BED TO USE THE BEDSIDE COMMODE. SHE REPORTS USING THE BEDPAIN, BUT HAVING SEVERE PAIN DOING SO. ON EXAMINATION, HEART IS REGULAR IN RATE AND RHYTHM. BILATERAL LUNGS ARE CLEAR TO AUSCULTATION. ABDOMEN IS ROUND, SOFT, AND NON-TENDER WITH NORMAL BOWEL SOUNDS NOTED IN ALL QUADRANTS. THERE IS MODERATE TENDERNESS NOTED TO THE LUMBAR SPINE ON EXAMINATION. HER VITALS TODAY ARE 97.8-74-22-97%-151/65. LABS WERE OBTAINED. ABNORMAL LAB VALUES INCLUDE THE FOLLOWING: HGB 11.1, HCT 31.9, BUN 27, CREATININE 1.56, ALK PHOS 14, TOTAL PROTEIN 6.3, ALBUMIN 2.9. WE DISCUSSED MRI FINDINGS WITH . HE DOES NOT FEEL THAT SURGICAL INTERVENTION IS NECESSARY AT THIS TIME. HE RECOMMENDS USE OF IV STEROIDS AND VALIUM. TODAY, WE WILL START VALIUM 10MG PO TID, PERCOCET 10/325MG PO QID, SOLU-MEDROL 125MG IV X 1, THEN SOLU-MEDROL 80MG IV Q8H. OTHERWISE, WE WILL FOLLOW-UP WITH AM LABS AND CONTINUE TO MONITOR PATIENT. - Past Medical Family Social History Past Med/Fam/Surg Hx: No changes since H&P Allergies: Allergies hydromorphone [From Dilaudid] Allergy (Verified 04/16/18 11:08) - Review of Systems ROS: No change since H&P - Vital Signs and I&O's Vital Signs: Temperature 98.2 F Pulse Rate [Right Brachial] 68 Respiratory Rate 18 Blood Pressure [Right Arm] 118/58 Blood Pressure [Left Arm] 114/56 Blood Pressure 119/62 O2 Sat by Pulse Oximetry 95 Intake and Output: Intake & Output 04/17/18 04/18/18 04/19/18 04/20/18 11:59 11:59 11:59 11:59 Intake Total 1763 / 1763 1923 / 1923 1190 / 1190 Output Total 850 / 850 1300 / 1300 2300 / 2300 Balance 913 / 913 623 / 623 -1110 / -1110 - Physical Exam Oriented: Normal Eyes: Normal Ear: Normal Nose: Normal Throat: Normal Cardiovascular: Normal : Normal Auscultation: Bowel Sounds: Normal Palpation: Normal Tenderness: Normal Skin: Normal Musculoskeletal: Left, Leg, Back:Lumbar, Sensory Deficit Psychiatric: Normal Mood Description: Calm Affect: Normal Speech Pattern: Clear, Appropriate - Laboratory and Diagnostics Result Diagrams: 04/19/18 04:41 04/19/18 04:41 Labs: 04/16/18 11:07 Urine,Clean Catch Urine Culture - Final Laboratory WBC 8.0 X10^3/uL (3.6-10.0) 04/19/18 04:41 RBC 3.52 X10^6/uL (3.5-5.4) 04/19/18 04:41 Hgb 11.1 g/dL (12.0-16.0) L 04/19/18 04:41 Hct 31.9 % (36.0-47.0) L 04/19/18 04:41 MCV 90.5 fL (80.0-100.0) 04/19/18 04:41 MCH 31.6 pg (27.0-34.0) 04/19/18 04:41 MCHC 34.9 g/dL (33.0-35.0) 04/19/18 04:41 RDW 12.7 % (11.6-16.5) 04/19/18 04:41 Plt Count 337 X10^3/uL (150.0-450.0) 04/19/18 04:41 MPV 8.3 fL (7.4-11.0) 04/19/18 04:41 Neut % (Auto) 51.5 % (42.0-75.0) 04/19/18 04:41 Lymph % (Auto) 34.1 % (21.0-51.0) 04/19/18 04:41 [place] % (Auto) 10.1 % (0.0-13.0) 04/19/18 04:41 Eos % (Auto) 3.9 % (0.9-2.9) H 04/19/18 04:41 Baso % (Auto) 0.4 % (0.2-1.0) 04/19/18 04:41 Neut # (Auto) 4.1 x10^3/uL (2.2-4.8) 04/19/18 04:41 Lymph # (Auto) 2.7 X10^3/uL (1.3-2.9) 04/19/18 04:41 [place] # (Auto) 0.8 x10^3/uL (0.3-0.8) 04/19/18 04:41 Eos # (Auto) 0.3 x10^3/uL (0.0-0.2) H 04/19/18 04:41 Baso # (Auto) 0.0 X10^3/uL (0.0-0.1) 04/19/18 04:41 Absolute Nucleated RBC 0.0 /100WBC 04/19/18 04:41 Sodium 139 mmol/L (136-145) 04/19/18 04:41 Corrected Sodium TNP 04/19/18 04:41 Potassium 3.9 mmol/L (3.5-5.1) 04/19/18 04:41 Chloride 107 mmol/L (98-107) 04/19/18 04:41 Carbon Dioxide 25.3 mmol/L (21-32) 04/19/18 04:41 BUN 27 mg/dL (7-18) H 04/19/18 04:41 Creatinine 1.56 mg/dL (0.55-1.02) H 04/19/18 04:41 Est GFR (MDRD) Af Amer 42 (>60) L 04/19/18 04:41 Est GFR (MDRD) Non-Af 34 (>60) L 04/19/18 04:41 Glucose 93 mg/dL (65-99) 04/19/18 04:41 Calcium 8.5 mg/dL (8.5-10.1) 04/19/18 04:41 Corrected Calcium 9.4 mg/dL (8.5-10.1) 04/19/18 04:41 Total Bilirubin 0.20 mg/dL (0.2-1.0) 04/19/18 04:41 AST 21 Units/L (15-37) 04/19/18 04:41 ALT 21 Units/L (12-78) 04/19/18 04:41 Alkaline Phosphatase 14 Units/L (46-116) L 04/19/18 04:41 Total Protein 6.3 g/dL (6.4-8.2) L 04/19/18 04:41 Albumin 2.9 g/dL (3.4-5.0) L 04/19/18 04:41 Globulin 3.4 g/dL (2.5-4.5) 04/19/18 04:41 Albumin/Globulin Ratio 0.9 Ratio (1.1-2.1) L 04/19/18 04:41 Specimen Type Clean catch urine 04/16/18 11:07 Urine Color Pale yellow (YELLOW) 04/16/18 11:07 Urine Appearance Clear (CLEAR) 04/16/18 11:07 Urine pH 6.0 (5.0 - 8.0) 04/16/18 11:07 Ur Specific [place] 1.010 (1.000-1.030) 04/16/18 11:07 Urine Protein Negative (NEGATIVE) 04/16/18 11:07 Urine Glucose (UA) Negative (NEGATIVE) 04/16/18 11:07 Urine Ketones Negative (NEGATIVE) 04/16/18 11:07 Urine Occult Blood 1+ (NEGATIVE) 04/16/18 11:07 Urine Nitrite Negative (NEGATIVE) 04/16/18 11:07 Urine Bilirubin Negative (NEGATIVE) 04/16/18 11:07 Urine Urobilinogen Normal (NORMAL) 04/16/18 11:07 Ur Leukocyte Esterase Negative (NEGATIVE) 04/16/18 11:07 Urine RBC 0-2 /HPF (NONE SEEN) 04/16/18 11:07 Urine WBC 0-2 /HPF (NONE SEEN) 04/16/18 11:07 Ur Squamous Epith Cells Rare /HPF (NEGATIVE) 04/16/18 11:07 Urine Bacteria Negative /HPF (NEGATIVE) 04/16/18 11:07 Ur Culture Indicated? Yes/culture set up 04/16/18 11:07 - Plan (1) Intractable pain Status: Acute Plan: SCHEDULED IV TORADOL FOR PAIN CONTROL, ZANAFLEX 4MG PO TID, VALIUM 10MG PO TID, SOLU-MEDROL 80MG IV Q8H, PERCOCET 10/325MG PO QID, PHYSICAL THERAPY, CONTINUE TO MONITOR (2) Radiculopathy of lumbar region Status: Acute (3) Degenerative disc disease Status: Acute Qualifiers: Spinal region: lumbar Qualified Code(s): M51.36 - Other intervertebral disc degeneration, lumbar region
[2018-04-19] MEDS: PRAVACHOL PO SCH (20:26)
[2018-04-19] MEDS: PEPCID TAB 20 MG PO SCH (20:26)
[2018-04-19] MEDS: ASPIRIN EC 81 MG PO SCH (20:26)
[2018-04-19] MEDS: KLONOPIN TAB 0.5 MG PO SCH (20:26)
[2018-04-19] MEDS: TRICOR TAB 145 MG PO SCH (20:27)
[2018-04-20] MEDS: TORADOL 30 MG VIAL IVP SCH ×4 (00:47→17:33)
[2018-04-20 05:14] LABS: BASOPHILS % (AUTO) 0.2 % (0.2-1.0); HEMATOCRIT 30.5 % (36.0-47.0); HEMOGLOBIN 10.7 g/dL (12.0-16.0); LYMPHOCYTES # (AUTO) 1.2 X10^3/uL (1.3-2.9); LYMPHOCYTES % (AUTO) 11.5 % (21.0-51.0); MEAN CORPUSCULAR HEMOGLOBIN 31.6 pg (27.0-34.0); MEAN CORPUSCULAR HGB CONC 35.3 g/dL (33.0-35.0); MEAN CORPUSCULAR VOLUME 89.7 fL (80.0-100.0); MEAN PLATELET VOLUME 8.7 fL (7.4-11.0); MONOCYTES # (AUTO) 0.3 x10^3/uL (0.3-0.8); MONOCYTES % (AUTO) 2.4 % (0.0-13.0); NEUTROPHILS # (AUTO) 9.1 x10^3/uL (2.2-4.8); NEUTROPHILS % (AUTO) 85.9 % (42.0-75.0); PLATELET COUNT 337 X10^3/uL (150.0-450.0); RED CELL DISTRIBUTION WIDTH 12.5 % (11.6-16.5); WHITE BLOOD COUNT 10.6 X10^3/uL (3.6-10.0)
[2018-04-20 05:32] LABS: ALBUMIN 2.8 g/dL (3.4-5.0); CALCIUM 8.4 mg/dL (8.5-10.1); CARBON DIOXIDE 25.6 mmol/L (21-32); COR CA(FOR HYPOALB) 9.4 mg/dL (8.5-10.1); CREATININE 1.45 mg/dL (0.55-1.02); TOTAL PROTEIN 6.3 g/dL (6.4-8.2)
[2018-04-20] MEDS: NEURONTIN CAP 400 MG PO SCH ×3 (05:53→21:39)
[2018-04-20] MEDS: SOLU-Medrol 40 MG VIAL IVP SCH ×3 (05:54→21:39)
[2018-04-20] MEDS: VALIUM PO SCH ×3 (05:54→21:39)
[2018-04-20] MEDS: NS 1000 ML 1,000 ML IV SCH ×2 (05:54→20:54)
[2018-04-20] MEDS: ZANAFLEX PO SCH ×3 (05:54→21:39)
[2018-04-20] MEDS: PROTONIX TAB 40 MG PO SCH (08:54)
[2018-04-20] MEDS: WELLBUTRIN XL 150 MG (DAILY) PO SCH (08:54)
[2018-04-20] MEDS: HYDROCHLOROTHIAZIDE 12.5 MG CAP PO SCH (08:54)
[2018-04-20] MEDS: TOPROL XL PO SCH (08:54)
[2018-04-20] MEDS: DIOVAN TAB 80 MG PO SCH (08:54)
[2018-04-20] MEDS: PRAVACHOL PO SCH (20:47)
[2018-04-20] MEDS: PEPCID TAB 20 MG PO SCH (20:48)
[2018-04-20] MEDS: TRICOR TAB 145 MG PO SCH (20:48)
[2018-04-20] MEDS: ASPIRIN EC 81 MG PO SCH (20:49)
[2018-04-20] MEDS: KLONOPIN TAB 0.5 MG PO SCH (20:50)
[2018-04-21] MEDS: TORADOL 30 MG VIAL IVP SCH ×3 (00:11→12:58)
[2018-04-21 05:22] LABS: BASOPHILS % (AUTO) 0.1 % (0.2-1.0); HEMATOCRIT 29.3 % (36.0-47.0); HEMOGLOBIN 10.1 g/dL (12.0-16.0); LYMPHOCYTES # (AUTO) 1.1 X10^3/uL (1.3-2.9); LYMPHOCYTES % (AUTO) 6.4 % (21.0-51.0); MEAN CORPUSCULAR HEMOGLOBIN 31.2 pg (27.0-34.0); MEAN CORPUSCULAR HGB CONC 34.3 g/dL (33.0-35.0); MEAN CORPUSCULAR VOLUME 91.1 fL (80.0-100.0); MEAN PLATELET VOLUME 9.2 fL (7.4-11.0); MONOCYTES # (AUTO) 0.8 x10^3/uL (0.3-0.8); MONOCYTES % (AUTO) 4.3 % (0.0-13.0); NEUTROPHILS % (AUTO) 89.2 % (42.0-75.0); PLATELET COUNT 329 X10^3/uL (150.0-450.0); RED BLOOD COUNT 3.22 X10^6/uL (3.5-5.4); RED CELL DISTRIBUTION WIDTH 12.6 % (11.6-16.5); WHITE BLOOD COUNT 17.9 X10^3/uL (3.6-10.0)
[2018-04-21] MEDS: NEURONTIN CAP 400 MG PO SCH ×3 (05:33→21:03)
[2018-04-21] MEDS: SOLU-Medrol 40 MG VIAL IVP SCH ×3 (05:33→21:03)
[2018-04-21] MEDS: VALIUM PO SCH ×3 (05:33→21:02)
[2018-04-21] MEDS: ZANAFLEX PO SCH ×3 (05:33→21:03)
[2018-04-21 05:50] LABS: ALBUMIN 2.5 g/dL (3.4-5.0); CARBON DIOXIDE 25.8 mmol/L (21-32); COR CA(FOR HYPOALB) 9.2 mg/dL (8.5-10.1); CREATININE 1.52 mg/dL (0.55-1.02); TOTAL PROTEIN 5.8 g/dL (6.4-8.2)
[2018-04-21] MEDS: TOPROL XL PO SCH (08:31)
[2018-04-21] MEDS: DIOVAN TAB 80 MG PO SCH (08:31)
[2018-04-21] MEDS: WELLBUTRIN XL 150 MG (DAILY) PO SCH (08:31)
[2018-04-21] MEDS: NS 1000 ML 1,000 ML IV SCH ×2 (08:31→21:03)
[2018-04-21] MEDS: PROTONIX TAB 40 MG PO SCH (08:31)
[2018-04-21] MEDS: HYDROCHLOROTHIAZIDE 12.5 MG CAP PO SCH (08:32)
--- NOTE | 2018-04-21 20:01 | PCM.PROG ---
Progress Note - Progress Note for Day of Date of Exam: 04/20/18 - Subjective Subjective: WAS ADMITTED FOR INTRACTABLE LOWER BACK PAIN. TODAY, SHE IS ALERT AND ORIENTED, LYING IN BED ON MORNING ROUNDS. SHE REPORTS SLIGHT IMPROVEMENT IN LOWER BACK PAIN SINCE CHANGES TO MEDICATIONS. ON EXAMINATION, HEART IS REGULAR IN RATE AND RHYTHM. BILATERAL LUNGS ARE CLEAR TO AUSCULTATION. ABDOMEN IS ROUND, SOFT, AND NON-TENDER WITH NORMAL BOWEL SOUNDS NOTED IN ALL QUADRANTS. THERE IS MODERATE TENDERNESS NOTED TO THE LUMBAR SPINE ON EXAMINATION. HER VITALS TODAY ARE 97.7-79-20-94%-132/63. LABS WERE OBTAINED. ABNORMAL LAB VALUES INCLUDE THE FOLLOWING: WBC 10.6, RBC 3.40, HGB 10.7, HCT 30.5, BUN 25, CREATININE 1.45, GLUCOSE 157, CALCIUM 8.4, ALK PHOS 13, TOTAL PROTEIN 6.3, ALBUMIN 2.8. TODAY, WE WILL CONTINUE VALIUM 10MG PO TID, PERCOCET 10/325MG PO QID, AND SOLU-MEDROL 80MG IV Q8H. WE WILL ALSO CONTINUE TO BE AGGRESSIVE TOLERABLE WITH PHYSICAL THERAPY. OTHERWISE, WE WILL FOLLOW-UP WITH AM LABS AND CONTINUE TO MONITOR PATIENT. - Past Medical Family Social History Past Med/Fam/Surg Hx: No changes since H&P Allergies: Allergies hydromorphone [From Dilaudid] Allergy (Verified 04/16/18 11:08) - Review of Systems ROS: No change since H&P - Vital Signs and I&O's Vital Signs: Temperature 98.0 F Pulse Rate [Right Brachial] 74 Respiratory Rate 18 Blood Pressure [Right Arm] 128/63 Blood Pressure [Left Arm] 114/56 Blood Pressure 119/62 O2 Sat by Pulse Oximetry 97 Intake and Output: Intake & Output 04/19/18 04/20/18 04/21/18 04/22/18 11:59 11:59 11:59 11:59 Intake Total 1190 / 1190 1367 / 1367 2283 / 2283 860 / 860 Output Total 2300 / 2300 1550 / 1550 700 / 700 Balance -1110 / -1110 -183 / -183 1583 / 1583 860 / 860 - Physical Exam Oriented: Normal Eyes: Normal Ear: Normal Nose: Normal Throat: Normal Cardiovascular: Normal : Normal Auscultation: Bowel Sounds: Normal Palpation: Normal Tenderness: Normal Skin: Normal Musculoskeletal: Left, Leg, Back:Lumbar, Sensory Deficit Psychiatric: Normal Mood Description: Calm Affect: Normal Speech Pattern: Clear, Appropriate - Laboratory and Diagnostics Result Diagrams: 04/21/18 04:24 04/21/18 04:24 Labs: 04/16/18 11:07 Urine,Clean Catch Urine Culture - Final Laboratory WBC 17.9 X10^3/uL (3.6-10.0) H 04/21/18 04:24 RBC 3.22 X10^6/uL (3.5-5.4) L 04/21/18 04:24 Hgb 10.1 g/dL (12.0-16.0) L 04/21/18 04:24 Hct 29.3 % (36.0-47.0) L 04/21/18 04:24 MCV 91.1 fL (80.0-100.0) 04/21/18 04:24 MCH 31.2 pg (27.0-34.0) 04/21/18 04:24 MCHC 34.3 g/dL (33.0-35.0) 04/21/18 04:24 RDW 12.6 % (11.6-16.5) 04/21/18 04:24 Plt Count 329 X10^3/uL (150.0-450.0) 04/21/18 04:24 MPV 9.2 fL (7.4-11.0) 04/21/18 04:24 Neut % (Auto) 89.2 % (42.0-75.0) H 04/21/18 04:24 Lymph % (Auto) 6.4 % (21.0-51.0) L 04/21/18 04:24 [place] % (Auto) 4.3 % (0.0-13.0) 04/21/18 04:24 Eos % (Auto) 0.0 % (0.9-2.9) L 04/21/18 04:24 Baso % (Auto) 0.1 % (0.2-1.0) L 04/21/18 04:24 Neut # (Auto) 16.0 x10^3/uL (2.2-4.8) H 04/21/18 04:24 Lymph # (Auto) 1.1 X10^3/uL (1.3-2.9) L 04/21/18 04:24 [place] # (Auto) 0.8 x10^3/uL (0.3-0.8) 04/21/18 04:24 Eos # (Auto) 0.0 x10^3/uL (0.0-0.2) 04/21/18 04:24 Baso # (Auto) 0.0 X10^3/uL (0.0-0.1) 04/21/18 04:24 Absolute Nucleated RBC 0.0 /100WBC 04/21/18 04:24 Sodium 139 mmol/L (136-145) 04/21/18 04:24 Corrected Sodium 140 mmol/L (136-145) 04/21/18 04:24 Potassium 3.8 mmol/L (3.5-5.1) 04/21/18 04:24 Chloride 107 mmol/L (98-107) 04/21/18 04:24 Carbon Dioxide 25.8 mmol/L (21-32) 04/21/18 04:24 BUN 33 mg/dL (7-18) H 04/21/18 04:24 Creatinine 1.52 mg/dL (0.55-1.02) H 04/21/18 04:24 Est GFR (MDRD) Af Amer 43 (>60) L 04/21/18 04:24 Est GFR (MDRD) Non-Af 35 (>60) L 04/21/18 04:24 Glucose 150 mg/dL (65-99) H 04/21/18 04:24 Calcium 8.0 mg/dL (8.5-10.1) L 04/21/18 04:24 Corrected Calcium 9.2 mg/dL (8.5-10.1) 04/21/18 04:24 Total Bilirubin 0.20 mg/dL (0.2-1.0) 04/21/18 04:24 AST 17 Units/L (15-37) 04/21/18 04:24 ALT 18 Units/L (12-78) 04/21/18 04:24 Alkaline Phosphatase 13 Units/L (46-116) L 04/21/18 04:24 Total Protein 5.8 g/dL (6.4-8.2) L 04/21/18 04:24 Albumin 2.5 g/dL (3.4-5.0) L 04/21/18 04:24 Globulin 3.3 g/dL (2.5-4.5) 04/21/18 04:24 Albumin/Globulin Ratio 0.8 Ratio (1.1-2.1) L 04/21/18 04:24 Specimen Type Clean catch urine 04/16/18 11:07 Urine Color Pale yellow (YELLOW) 04/16/18 11:07 Urine Appearance Clear (CLEAR) 04/16/18 11:07 Urine pH 6.0 (5.0 - 8.0) 04/16/18 11:07 Ur Specific [place] 1.010 (1.000-1.030) 04/16/18 11:07 Urine Protein Negative (NEGATIVE) 04/16/18 11:07 Urine Glucose (UA) Negative (NEGATIVE) 04/16/18 11:07 Urine Ketones Negative (NEGATIVE) 04/16/18 11:07 Urine Occult Blood 1+ (NEGATIVE) 04/16/18 11:07 Urine Nitrite Negative (NEGATIVE) 04/16/18 11:07 Urine Bilirubin Negative (NEGATIVE) 04/16/18 11:07 Urine Urobilinogen Normal (NORMAL) 04/16/18 11:07 Ur Leukocyte Esterase Negative (NEGATIVE) 04/16/18 11:07 Urine RBC 0-2 /HPF (NONE SEEN) 04/16/18 11:07 Urine WBC 0-2 /HPF (NONE SEEN) 04/16/18 11:07 Ur Squamous Epith Cells Rare /HPF (NEGATIVE) 04/16/18 11:07 Urine Bacteria Negative /HPF (NEGATIVE) 04/16/18 11:07 Ur Culture Indicated? Yes/culture set up 04/16/18 11:07 - Plan (1) Intractable pain Status: Acute Plan: SCHEDULED IV TORADOL FOR PAIN CONTROL, ZANAFLEX 4MG PO TID, VALIUM 10MG PO TID, SOLU-MEDROL 80MG IV Q8H, PERCOCET 10/325MG PO QID, PHYSICAL THERAPY, CONTINUE TO MONITOR (2) Radiculopathy of lumbar region Status: Acute (3) Degenerative disc disease Status: Acute Qualifiers: Spinal region: lumbar Qualified Code(s): M51.36 - Other intervertebral disc degeneration, lumbar region
--- NOTE | 2018-04-21 20:06 | PCM.PROG ---
Progress Note - Progress Note for Day of Date of Exam: 04/21/18 - Subjective Subjective: WAS ADMITTED FOR INTRACTABLE LOWER BACK PAIN. TODAY, SHE IS ALERT AND ORIENTED, LYING IN BED ON MORNING ROUNDS. SHE REPORTS SIGNIFICANT IMPROVEMENT IN BACK PAIN, BUT REPORTS THAT SHE HAS NOT BEEN OUT OF BED MUCH. ON EXAMINATION, HEART IS REGULAR IN RATE AND RHYTHM. BILATERAL LUNGS ARE CLEAR TO AUSCULTATION. ABDOMEN IS ROUND, SOFT, AND NON-TENDER WITH NORMAL BOWEL SOUNDS NOTED IN ALL QUADRANTS. THERE IS MILD TENDERNESS NOTED TO THE LUMBAR SPINE ON EXAMINATION. HER VITALS TODAY ARE 97.4-66-18-96%-140/64. LABS WERE OBTAINED. ABNORMAL LAB VALUES INCLUDE THE FOLLOWING: WBC 17.9, RBC 3.22, HGB 10.1, HCT 29.3, BUN 33, CREATININE 1.52, GLUCOSE 150, CALCIUM 8.0, ALK PHOS 13, TOTAL PROTEIN 5.8, ALBUMIN 2.5. TODAY, WE WILL CONTINUE VALIUM 10MG PO TID, PERCOCET 10/325MG PO QID, AND SOLU-MEDROL 80MG IV Q8H, AND ZANAFLEX. WE WILL ALSO CONTINUE TO BE AGGRESSIVE TOLERABLE WITH PHYSICAL THERAPY. OTHERWISE, WE WILL FOLLOW-UP WITH AM LABS AND CONTINUE TO MONITOR PATIENT. - Past Medical Family Social History Past Med/Fam/Surg Hx: No changes since H&P Allergies: Allergies hydromorphone [From Dilaudid] Allergy (Verified 04/16/18 11:08) - Review of Systems ROS: No change since H&P - Vital Signs and I&O's Vital Signs: Temperature 98.0 F Pulse Rate [Right Brachial] 74 Respiratory Rate 18 Blood Pressure [Right Arm] 128/63 Blood Pressure [Left Arm] 114/56 Blood Pressure 119/62 O2 Sat by Pulse Oximetry 97 Intake and Output: Intake & Output 04/19/18 04/20/18 04/21/18 04/22/18 11:59 11:59 11:59 11:59 Intake Total 1190 / 1190 1367 / 1367 2283 / 2283 860 / 860 Output Total 2300 / 2300 1550 / 1550 700 / 700 Balance -1110 / -1110 -183 / -183 1583 / 1583 860 / 860 - Physical Exam Oriented: Normal Eyes: Normal Ear: Normal Nose: Normal Throat: Normal Cardiovascular: Normal : Normal Auscultation: Bowel Sounds: Normal Tenderness: Normal Skin: Normal Musculoskeletal: Left, Leg, Back:Lumbar, Sensory Deficit Psychiatric: Normal Mood Description: Calm Affect: Normal Speech Pattern: Clear, Appropriate - Laboratory and Diagnostics Result Diagrams: 04/21/18 04:24 04/21/18 04:24 Labs: 04/16/18 11:07 Urine,Clean Catch Urine Culture - Final Laboratory WBC 17.9 X10^3/uL (3.6-10.0) H 04/21/18 04:24 RBC 3.22 X10^6/uL (3.5-5.4) L 04/21/18 04:24 Hgb 10.1 g/dL (12.0-16.0) L 04/21/18 04:24 Hct 29.3 % (36.0-47.0) L 04/21/18 04:24 MCV 91.1 fL (80.0-100.0) 04/21/18 04:24 MCH 31.2 pg (27.0-34.0) 04/21/18 04:24 MCHC 34.3 g/dL (33.0-35.0) 04/21/18 04:24 RDW 12.6 % (11.6-16.5) 04/21/18 04:24 Plt Count 329 X10^3/uL (150.0-450.0) 04/21/18 04:24 MPV 9.2 fL (7.4-11.0) 04/21/18 04:24 Neut % (Auto) 89.2 % (42.0-75.0) H 04/21/18 04:24 Lymph % (Auto) 6.4 % (21.0-51.0) L 04/21/18 04:24 Steele % (Auto) 4.3 % (0.0-13.0) 04/21/18 04:24 Eos % (Auto) 0.0 % (0.9-2.9) L 04/21/18 04:24 Baso % (Auto) 0.1 % (0.2-1.0) L 04/21/18 04:24 Neut # (Auto) 16.0 x10^3/uL (2.2-4.8) H 04/21/18 04:24 Lymph # (Auto) 1.1 X10^3/uL (1.3-2.9) L 04/21/18 04:24 Steele # (Auto) 0.8 x10^3/uL (0.3-0.8) 04/21/18 04:24 Eos # (Auto) 0.0 x10^3/uL (0.0-0.2) 04/21/18 04:24 Baso # (Auto) 0.0 X10^3/uL (0.0-0.1) 04/21/18 04:24 Absolute Nucleated RBC 0.0 /100WBC 04/21/18 04:24 Sodium 139 mmol/L (136-145) 04/21/18 04:24 Corrected Sodium 140 mmol/L (136-145) 04/21/18 04:24 Potassium 3.8 mmol/L (3.5-5.1) 04/21/18 04:24 Chloride 107 mmol/L (98-107) 04/21/18 04:24 Carbon Dioxide 25.8 mmol/L (21-32) 04/21/18 04:24 BUN 33 mg/dL (7-18) H 04/21/18 04:24 Creatinine 1.52 mg/dL (0.55-1.02) H 04/21/18 04:24 Est GFR (MDRD) Af Amer 43 (>60) L 04/21/18 04:24 Est GFR (MDRD) Non-Af 35 (>60) L 04/21/18 04:24 Glucose 150 mg/dL (65-99) H 04/21/18 04:24 Calcium 8.0 mg/dL (8.5-10.1) L 04/21/18 04:24 Corrected Calcium 9.2 mg/dL (8.5-10.1) 04/21/18 04:24 Total Bilirubin 0.20 mg/dL (0.2-1.0) 04/21/18 04:24 AST 17 Units/L (15-37) 04/21/18 04:24 ALT 18 Units/L (12-78) 04/21/18 04:24 Alkaline Phosphatase 13 Units/L (46-116) L 04/21/18 04:24 Total Protein 5.8 g/dL (6.4-8.2) L 04/21/18 04:24 Albumin 2.5 g/dL (3.4-5.0) L 04/21/18 04:24 Globulin 3.3 g/dL (2.5-4.5) 04/21/18 04:24 Albumin/Globulin Ratio 0.8 Ratio (1.1-2.1) L 04/21/18 04:24 Specimen Type Clean catch urine 04/16/18 11:07 Urine Color Pale yellow (YELLOW) 04/16/18 11:07 Urine Appearance Clear (CLEAR) 04/16/18 11:07 Urine pH 6.0 (5.0 - 8.0) 04/16/18 11:07 Ur Specific [place] 1.010 (1.000-1.030) 04/16/18 11:07 Urine Protein Negative (NEGATIVE) 04/16/18 11:07 Urine Glucose (UA) Negative (NEGATIVE) 04/16/18 11:07 Urine Ketones Negative (NEGATIVE) 04/16/18 11:07 Urine Occult Blood 1+ (NEGATIVE) 04/16/18 11:07 Urine Nitrite Negative (NEGATIVE) 04/16/18 11:07 Urine Bilirubin Negative (NEGATIVE) 04/16/18 11:07 Urine Urobilinogen Normal (NORMAL) 04/16/18 11:07 Ur Leukocyte Esterase Negative (NEGATIVE) 04/16/18 11:07 Urine RBC 0-2 /HPF (NONE SEEN) 04/16/18 11:07 Urine WBC 0-2 /HPF (NONE SEEN) 04/16/18 11:07 Ur Squamous Epith Cells Rare /HPF (NEGATIVE) 04/16/18 11:07 Urine Bacteria Negative /HPF (NEGATIVE) 04/16/18 11:07 Ur Culture Indicated? Yes/culture set up 04/16/18 11:07 - Plan (1) Intractable pain Status: Acute Plan: SCHEDULED IV TORADOL FOR PAIN CONTROL, ZANAFLEX 4MG PO TID, VALIUM 10MG PO TID, SOLU-MEDROL 80MG IV Q8H, PERCOCET 10/325MG PO QID, PHYSICAL THERAPY, CONTINUE TO MONITOR (2) Radiculopathy of lumbar region Status: Acute (3) Degenerative disc disease Status: Acute Qualifiers: Spinal region: lumbar Qualified Code(s): M51.36 - Other intervertebral disc degeneration, lumbar region
[2018-04-21] MEDS: TRICOR TAB 145 MG PO SCH (21:02)
[2018-04-21] MEDS: PEPCID TAB 20 MG PO SCH (21:02)
[2018-04-21] MEDS: PRAVACHOL PO SCH (21:03)
[2018-04-21] MEDS: ASPIRIN EC 81 MG PO SCH (21:03)
[2018-04-21] MEDS: KLONOPIN TAB 0.5 MG PO SCH (21:03)
[2018-04-22 05:15] LABS: BASOPHILS % (AUTO) 0.2 % (0.2-1.0); EOSINOPHILS % (AUTO) 0.1 % (0.9-2.9); HEMATOCRIT 30.1 % (36.0-47.0); HEMOGLOBIN 10.3 g/dL (12.0-16.0); LYMPHOCYTES % (AUTO) 6.2 % (21.0-51.0); MEAN CORPUSCULAR HEMOGLOBIN 30.8 pg (27.0-34.0); MEAN CORPUSCULAR VOLUME 90.4 fL (80.0-100.0); MONOCYTES # (AUTO) 1.2 x10^3/uL (0.3-0.8); MONOCYTES % (AUTO) 6.9 % (0.0-13.0); NEUTROPHILS # (AUTO) 14.6 x10^3/uL (2.2-4.8); NEUTROPHILS % (AUTO) 86.6 % (42.0-75.0); PLATELET COUNT 358 X10^3/uL (150.0-450.0); RED BLOOD COUNT 3.33 X10^6/uL (3.5-5.4); RED CELL DISTRIBUTION WIDTH 12.6 % (11.6-16.5); WHITE BLOOD COUNT 16.8 X10^3/uL (3.6-10.0)
[2018-04-22] MEDS: SOLU-Medrol 40 MG VIAL IVP SCH (05:16)
[2018-04-22] MEDS: NEURONTIN CAP 400 MG PO SCH (05:16)
[2018-04-22] MEDS: ZANAFLEX PO SCH (05:17)
[2018-04-22] MEDS: VALIUM PO SCH (05:17)
[2018-04-22 05:21] LABS: ALBUMIN 2.5 g/dL (3.4-5.0); CALCIUM 7.8 mg/dL (8.5-10.1); CARBON DIOXIDE 28.7 mmol/L (21-32); CREATININE 1.55 mg/dL (0.55-1.02)
[2018-04-22] MEDS: HYDROCHLOROTHIAZIDE 12.5 MG CAP PO SCH (09:00)
[2018-04-22] MEDS: DIOVAN TAB 80 MG PO SCH (09:00)
[2018-04-22] MEDS: PROTONIX TAB 40 MG PO SCH (09:00)
[2018-04-22] MEDS: WELLBUTRIN XL 150 MG (DAILY) PO SCH (09:01)
[2018-04-22] MEDS: NS 1000 ML 1,000 ML IV SCH (09:01)
[2018-04-22] MEDS: TOPROL XL PO SCH (09:01)
[2018-04-22 09:35] VITALS: BP 167/73
--- NOTE | 2018-05-30 21:01 | DR.CARTERD ---
- Discharge Summary for: Discharge Summary for Date of:: 04/22/18 - Admission Date Date of Admission: 04/16/18 - Admission Diagnoses Admission Diagnosis: (1) Intractable pain (2) Radiculopathy of lumbar region - Discharge Date Discharge Date: 04/22/18 - Discharge Diagnoses Discharge Diagnosis: (1) Intractable pain (2) Radiculopathy of lumbar region (3) Degenerative disc disease - Hospital Course Hospital Course: DAY ONE, MS. ALTMAN IS A 77 YEAR OLD PATIENT OF OURS. SHE PRESENTED TO THE HOSPITAL A DIRECT ADMISSION WITH COMPLAINTS OF SEVERE LOWER BACK PAIN. PATIENT REPORTED THAT PAIN RADIATED DOWN THE LEFT LEG. SHE REPORTED THAT SHE HAD ONLY BEEN ABLE TO AMBULATE SHORT DISTANCES OF THE PAST THREE DAYS WITHOUT BEING IN SEVERE PAIN. PATIENT REPORTED THAT LYING ON HER RIGHT SIDE WAS THE ONLY THING THAT EASED HER PAIN. ON ADMISSION, VITALS WERE 98.5, 94, 20, 94% RA, 153/72. LABS WERE OBTAINED. ABNORMAL LAB VALUES INCLUDED THE FOLLOWING: HCT 35.0 , MCHC 35.3, Sodium 135, BUN 22, Creatinine 1.52, GFR (AA) 43, GFR (NON) 35, Glucose 107, Alkaline Phosphatase 17, A/G ratio 0.9. Urinalysis: Occult Blood 1+ , RBC 0-2, WBC 0-2. WE STARTED HER ON IV TORADOL FOR PAIN CONTROL AND NORMAL SALINE AT 50ML/HR FOR GENTLE IV HYDRATION. WE CONTINUED TO MONITOR PATIENT. DAY TWO, MS. ALTMAN WAS ADMITTED FOR INTRACTABLE LOWER BACK PAIN. SHE WAS ALERT AND ORIENTED, LYING IN BED ON MORNING ROUNDS. SHE CONTINUED WITH SEVERE PAIN TO THE LOWER BACK. SHE REPORTED THAT PAIN CONTINUED TO RADIATE DOWN THE LEFT LEG. ON EXAMINATION, HEART WAS REGULAR IN RATE AND RHYTHM. BILATERAL LUNGS WERE CLEAR TO AUSCULTATION. ABDOMEN WAS ROUND, SOFT, AND NON-TENDER WITH NORMAL BOWEL SOUNDS NOTED IN ALL QUADRANTS. THERE WAS MODERATE TENDERNESS NOTED TO THE LUMBAR SPINE ON EXAMINATION. HER VITALS WERE 97.6-73-20-95%-163/72. LABS WERE OBTAINED. ABNORMAL LAB VALUES INCLUDED THE FOLLOWING: RBC 3.38, HGB 10.7, HCT 30.4, BUN 30, CREATININE 1.74, GLUCOSE 108, CALCIUM 8.4, ALK PHOS 13, TOTAL PROTEIN 6.3, ALBMIN 2.9. WE STARTED ZANAFLEX 4MG PO TID AND CONTINUED TO MONITOR PATIENT. DAY THREE, SHE WAS ALERT AND ORIENTED, LYING IN BED ON MORNING ROUNDS. SHE CONTINUED WITH SEVERE PAIN TO THE LOWER BACK. SHE REPORTED THAT PAIN CONTINUED TO RADIATE DOWN THE LEFT LEG AND WAS WORSE THAN THE DAY BEFORE. ON EXAMINATION, HEART WAS REGULAR IN RATE AND RHYTHM. BILATERAL LUNGS WERE CLEAR TO AUSCULTATION. ABDOMEN WAS ROUND, SOFT, AND NON-TENDER WITH NORMAL BOWEL SOUNDS NOTED IN ALL QUADRANTS. THERE WAS MODERATE TENDERNESS NOTED TO THE LUMBAR SPINE ON EXAMINATION. HER VITALS WERE 98.0-71-20-97%-166/70. LABS WERE OBTAINED. ABNORMAL LAB VALUES INCLUDED THE FOLLOWING: RBC 3.45, HGB 11.0, HCT 31.1, SODIUM 135, BUN 29, CREATININE 1.57, ALK PHOS 12, TOTAL PROTEIN 6.2, ALBUMIN 2.9. A LUMBAR SPINE MRI WAS OBTAINED TODAY AND REVEALED: 1. Multilevel discogenic degenerative disease as described above 2. Severe central canal narrowing at L4-L5. The contributing factors are circumferential disc bulge with facet arthropathy as well as what appears to be postsurgical changes. Artifact and lack of contrast limits evaluation to the degree that the hardware/ postsurgical changes contribute to the narrowing. 3. Central canal stenosis is also noted at T12-L1, L1-L2 , L2-L3 and L3-L4. WE CONTINUED WITH TREATMENT AND DISCUSSED RESULTS WITH . DAY FOUR, SHE WAS ALERT AND ORIENTED, LYING IN BED ON MORNING ROUNDS. SHE WAS CRYING AND CONTINUED WITH SEVERE PAIN TO THE LOWER BACK. SHE REPORTED THAT PAIN CONTINUED TO RADIATE DOWN THE LEFT LEG AND CONTINUED TO WORSEN. SHE REPORTED THAT SHE WAS UNABLE TO GET OUT OF BED TO USE THE BEDSIDE COMMODE. SHE REPORTED USING THE BEDPAN, BUT HAD SEVERE PAIN DOING SO. ON EXAMINATION, HEART WAS REGULAR IN RATE AND RHYTHM. BILATERAL LUNGS WERE CLEAR TO AUSCULTATION. ABDOMEN WAS ROUND, SOFT, AND NON-TENDER WITH NORMAL BOWEL SOUNDS NOTED IN ALL QUADRANTS. THERE WAS MODERATE TENDERNESS NOTED TO THE LUMBAR SPINE ON EXAMINATION. HER VITALS WERE 97.8-74-22-97%-151/65. LABS WERE OBTAINED. ABNORMAL LAB VALUES INCLUDED THE FOLLOWING: HGB 11.1, HCT 31.9, BUN 27, CREATININE 1.56, ALK PHOS 14, TOTAL PROTEIN 6.3, ALBUMIN 2.9. WE DISCUSSED MRI FINDINGS WITH DR. PIERRE. HE DID NOT FEEL THAT SURGICAL INTERVENTION WAS NECESSARY AT THAT TIME. HE RECOMMENDED USE OF IV STEROIDS AND VALIUM. WE STARTED VALIUM 10MG PO TID, PERCOCET 10/325MG PO QID, SOLU-MEDROL 125MG IV X 1, THEN SOLU-MEDROL 80MG IV Q8H. WE CONTINUED TO MONITOR PATIENT. DAY FIVE, SHE REPORTED SLIGHT IMPROVEMENT IN LOWER BACK PAIN SINCE CHANGES TO MEDICATIONS. ON EXAMINATION, HEART WAS REGULAR IN RATE AND RHYTHM. BILATERAL LUNGS WERE CLEAR TO AUSCULTATION. ABDOMEN WAS ROUND, SOFT, AND NON-TENDER WITH NORMAL BOWEL SOUNDS NOTED IN ALL QUADRANTS. THERE WAS MODERATE TENDERNESS NOTED TO THE LUMBAR SPINE ON EXAMINATION. HER VITALS WERE 97.7-79-20-94%-132/63. LABS WERE OBTAINED. ABNORMAL LAB VALUES INCLUDED THE FOLLOWING: WBC 10.6, RBC 3.40, HGB 10.7, HCT 30.5, BUN 25, CREATININE 1.45, GLUCOSE 157, CALCIUM 8.4, ALK PHOS 13, TOTAL PROTEIN 6.3, ALBUMIN 2.8. WE CONTINUED VALIUM 10MG PO TID, PERCOCET 10 /325MG PO QID, AND SOLU-MEDROL 80MG IV Q8H. WE ALSO CONTINUED TO BE AGGRESSIVE TOLERABLE WITH PHYSICAL THERAPY AND CONTINUED TO MONITOR PATIENT. DAY SIX, SHE REPORTED SIGNIFICANT IMPROVEMENT IN BACK PAIN, BUT REPORTED THAT SHE HAD NOT BEEN OUT OF BED MUCH. ON EXAMINATION, HEART WAS REGULAR IN RATE AND RHYTHM. BILATERAL LUNGS WERE CLEAR TO AUSCULTATION. ABDOMEN WAS ROUND, SOFT, AND NON-TENDER WITH NORMAL BOWEL SOUNDS NOTED IN ALL QUADRANTS. THERE WAS MILD TENDERNESS NOTED TO THE LUMBAR SPINE ON EXAMINATION. HER VITALS WERE 97.4-66-18- 96%-140/64. LABS WERE OBTAINED. ABNORMAL LAB VALUES INCLUDED THE FOLLOWING: WBC 17.9, RBC 3.22, HGB 10.1, HCT 29.3, BUN 33, CREATININE 1.52, GLUCOSE 150, CALCIUM 8.0, ALK PHOS 13, TOTAL PROTEIN 5.8, ALBUMIN 2.5. WE CONTINUED VALIUM 10MG PO TID, PERCOCET 10/325MG PO QID, AND SOLU-MEDROL 80MG IV Q8H, AND ZANAFLEX. WE ALSO CONTINUED TO BE AGGRESSIVE TOLERABLE WITH PHYSICAL THERAPY. WE CONTINUED TO MONITOR PATIENT. DAY SEVEN, PATIENT REPORTED SHE WAS FEELING BETTER WITH LESS BACK PAIN. PATIENT REPORTED PAIN WAS CONTROLLED WITH ORAL MEDICATIONS. PATIENT REPORTED SHE WAS ABLE TO GET OUT OF BED AND AMBULATE YESTERDAY, WHICH WAS A HUGE IMPROVEMENT FROM ADMISSION. VITAL SIGNS STABLE. LABS WNL. WE PLANNED FOR DISCHARGE. INSTRUCTIONS FOR MEDICATIONS AND FOLLOW UP WERE DISCUSSED WITH PATIENT AND FAMILY, BOTH VOICED UNDERSTANDING. PATIENT DISCHARGED HOME IN STABLE CONDITION WITH FAMILY. - Discharge Medications Discharge Medications: Home Medication List bupropion HCl 1 tab PO DAILY 04/16/18 [History] clonazepam 0.5 mg PO HS PRN 04/16/18 [History] metoprolol succinate 50 mg PO DAILY 04/16/18 [History] pravastatin 20 mg PO HS 04/16/18 [History] valsartan-hydrochlorothiazide 1 tab PO DAILY 04/16/18 [History] diltiazem HCl 1 tab PO HS 04/18/18 [History] diazepam 10 mg PO Q8H #45 tab 04/22/18 [Rx] gabapentin [Neurontin] 400 mg PO TID #90 cap 04/22/18 [Rx] naproxen [Naprosyn] 500 mg PO BID PRN #60 tab 04/22/18 [Rx] oxycodone-acetaminophen [Percocet] 1 tab PO QID #45 tab 04/22/18 [Rx] tizanidine [Zanaflex] 4 mg PO TID #60 tab 04/22/18 [Rx] Prescriptions: diazepam Chris Peraza gabapentin [Neurontin] Chris Peraza naproxen [Naprosyn] Chris Peraza oxycodone-acetaminophen [Percocet] Chris Peraza tizanidine [Zanaflex] Chris Peraza Home medications aspirin [Aspir-Low] 81 mg PO HS 07/24/13 famotidine 40 mg PO HS 07/24/13 fenofibrate nanocrystallized 145 mg PO HS 12/06/16 pantoprazole 40 mg PO DAILY 12/06/16 - Discharge Disposition Discharge Disposition: PATIENT IS TO FOLLOW UP IN OUR OFFICE IN ONE WEEK.
== END 2018-04-22 11:40 | disposition home or self-care (01) | DRG 552 ==
LOC: MED/SURG
PROVIDERS: ADMIT Internal Medicine; ATTEND Internal Medicine
DX: R26.89 Other abnormalities of gait and mobility; M54.5 Low back pain; M79.605 Pain in left leg; I10 Essential (primary) hypertension; M54.16 Radiculopathy, lumbar region; M51.36 Other intervertebral disc degeneration, lumbar region; E78.2 Mixed hyperlipidemia; K21.9 Gastro-esophageal reflux disease without esophagitis
CPT/HCPCS: 36415; 72148; 80053; 81001; 85025; 87086; 97110; 97112; 97116; 97162; 97167; 97530; 97535; A4216; A4222; S0106; G0378; J1885; J2175; J2270; J2405; J2920; J2930; J7030